=== PATIENT | female | born 1930 | race Caucasian/White ===

== ENCOUNTER 2017-06-22 10:25 | Inpatient (IN) | payer MEDICARE, OTHER ==
[2017-06-22] MEDS ORDERED: Famotidine 20 MG/2 ML SDV IVPUSH ONE (10:36)
--- NOTE | 2017-06-22 10:36 | EDM.PDOC ---
ED HPI GENERAL MEDICAL PROBLEM - General Chief Complaint: General Stated Complaint: Headache, elevated blood pressure Time Seen by Provider: 06/22/17 10:25 Source of Information: Reports: Patient, Old Records ([facility] chart/EMR) History Limitations: Reports: Other (Anxiety and presbycusis) - History of Present Illness INITIAL COMMENTS - FREE TEXT/NARRATIVE: Patient was brought to the emergency room via private automobile by Pastor Michael Capone from [facility] in [place], for evaluation of elevated blood pressures at home 198/80 with patient apparently taking an additional one half tablet of labetalol this morning per instructions from her regular providers at the [facility] in [place]. The patient woke at about 4 AM this morning with a severe 8/10 bilateral frontal pounding headache with some nausea and dizziness, however no visual changes, aura, or other change in her neurological status. She did take 2 regular strength aspirin at that time with only minimal improvement of her symptoms. She also did take her morning medications. The patient denies any chest pain/pressure, heart flutter, orthostasis, orthopnea, diaphoresis, paresthesias, recent decreased exercise tolerance, or any other anginal-type symptoms. No recent history of abdominal pain, heartburn, diarrhea, melena, gross hematochezia, or any food intolerance, including fatty foods, etc. with normal bowel movement this morning. The patient also denies any recent fever, cough, wheezing, dyspnea, etc.. She has not taken any recent OTC cold preparations, etc. Patient is a somewhat poor historian secondary to her significant anxiety. The patient does have a pill organizer at home and denies any medication noncompliance Onset: Today, Sudden Onset Date: 06/22/17 Onset Time: 04:00 Duration: Constant Location: Reports: Head (Headache as above), Back (Stable chronic low back). Denies: Face, Neck, Chest, Abdomen, Upper Extremity, Left, Upper Extremity, Right, Lower Extremity, Left, Lower Extremity, Right, Generalized, Radiates to Quality: Reports: Same as Previous Episode, Stabbing Severity: Moderate Improves with: Reports: None Worsens with: Reports: None Context: Reports: Other (As above) Associated Symptoms: Reports: Headaches, Nausea/Vomiting (No emesis). Denies: Confusion, Chest Pain, Cough, Diaphoresis, Fever/Chills, Loss of Appetite, Malaise, Seizure, Shortness of Breath, Syncope, Weakness Treatments CULINARY WORKER: Reports: Aspirin, Other Medication(s) (Morning medications as above) Headache Pain Score (Numeric/FACES): 8 - Related Data Allergies Allergy/AdvReac Type Severity Reaction Status Date / Time Penicillins Allergy Cannot Verified 06/22/17 10:34 Remember Home Meds: Home Meds Aspirin [Ecotrin] 81 mg PO DAILY 04/06/17 [History] Calcitriol [Calcitriol] 0.25 mcg PO DAILY 04/06/17 [History] Carbidopa/Levodopa [Carbidopa-Levo 25-100 MG ODT] 1 tab PO QID 04/06/17 [History ] Cholecalciferol (Vitamin D3) [Vitamin D3] 1,000 unit PO DAILY 04/06/17 [History] Cyanocobalamin (Vitamin B12) [Vitamin B12] 1,000 mcg PO DAILY 04/06/17 [History] Docusate Sodium [Colace] 1 tab PO DAILY PRN 04/06/17 [History] Labetalol [Normodyne] 100 mg PO DAILY 04/06/17 [History] Levothyroxine 112 mcg PO ACBREAKFAST 04/06/17 [History] Losartan/Hydrochlorothiazide [Losartan-HCTZ 100-12.5 MG] 1 tab PO DAILY [History] Lovastatin [Lovastatin] 40 mg PO BEDTIME 04/06/17 [History] hydrALAZINE [Apresoline] 50 mg PO BID 04/06/17 [History] Past Medical History HEENT History: Reports: Hard of Hearing, Impaired Vision, Other (See Below) Other HEENT History: Patient wears glasses; severe bilateral presbycusis with suboptimal improvement with bilateral hearing aids; chronic tinnitus and vertigo with negative workup Cardiovascular History: Reports: Arrhythmia, CAD, Heart Murmur, High Cholesterol , Hypertension, Pulmonary Hypertension, PVD, Other (See Below). 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 Denies: Intubation, Difficult, PE, Pneumonia, Recurrent, Pneumothorax, Sleep Apnea Other Respiratory History: COPD by chest x-ray Gastrointestinal History: Reports: Cholelithiasis, Chronic Constipation, GERD, Hemorrhoids, Other (See Below). Denies: GI Bleed Other Gastrointestinal History: Mild colitis by colonoscopy on 01/09/08 Genitourinary History: Reports: Chronic Renal Insuffiency, Other (See Below) Other Genitourinary History: Right renal cyst diagnosed on 11/19/04; chronic proteinuria; atrophic left kidney secondary to renal artery stenosis : 0 Para: 0 LMP (Approximate): Menopausal (In her 30s) Musculoskeletal History: Reports: Arthritis, Back Pain, Chronic, Gout, Neck Pain , Chronic, Osteoarthritis, Osteoporosis, Other (See Below). 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; pes planus; right rotator cuff tear diagnosed by MRI on 05/16/13 Neurological History: Reports: Other (See Below) Other Neuro History: Restless leg syndrome Psychiatric History: Reports: Anxiety, Depression, Suicidal Ideation, Other ( See Below) Other Psychiatric History: Situational suicidal ideation and attempt 10/08/1971 secondary to her adopted son's alcohol or drug abuse as below Endocrine/Metabolic History: Reports: Hyperparathyroidism, Hypoparathyroidism, Osteopenia, Osteoporosis, Other (See Below) Other Endocrine/Metabolic History: Secondary hyperparathyroidism secondary to her renal disease Hematologic History: Reports: Anemia, Iron Deficiency, Other (See Below). Denies: B12 Deficiency, Blood Transfusion(s) Other Hematologic History: Outpatient Iron replacement in 2017 Immunologic History: Reports: None Oncologic (Cancer) History: Reports: None Dermatologic History: Reports: Venous Stasis Dermatitis, Other (See Below). Denies: Chronic Cellulitis, Eczema, Psoriasis Other Dermatologic History: Chronic allergic dermatitis - Infectious Disease History Infectious Disease History: Reports: Other (See Below) Other Infectious Disease History: Childhood diseases however patient uncertain - Past Surgical History HEENT Surgical History: Reports: Oral Surgery, Tonsillectomy, Other (See Below) Other HEENT Surgeries/Procedures: Multiple teeth extractions; tonsillectomy at age 15 Cardiovascular Surgical History: Reports: Other (See Below) Other Cardiovascular Surgeries/Procedures: Left renal artery stent/CULINARY WORKER on GI Surgical History: Reports: Cholecystectomy, Colonoscopy, Other (See Below) Other GI Surgeries/Procedures: Colonoscopy on 01/09/08 with previous evaluation on 11/14/02; laparoscopic cholecystectomy on 05/13/2000 Neurological Surgical History: Reports: Laminectomy, Lumbar Spine, Spinal Fusion , Other (See Below) Other Neurological Surgeries/Procedures: Laminectomy and/or spinal fusions in lumbar region in 1966 and 1966 - Past Imaging History Past Imaging History: Reports: Cardiac Echo (Last echocardiogram on 10/19/05 with previous evaluation on 08/26/01), Carotid US (02/28/08 with previous evaluation on 10/01/03), CAT Scan (Negative CT of the head on 12/28/1989), DEXA Scan (01/27/11), Mammogram (Last on 03/18/09), MRA (Abdominal MRA on 12/25/04), MRI (Right shoulder on 05/16/13;), Stress Testing (Negative Cardiolite stress test on 04/01/06 with ejection fraction 74% at that time with previous history of mild cardiac ischemia as above by adenosine Cardiolite stress test on 08/21/02 : Cardiolite stress test in April 2000), Ultrasound (Abdominal aortic ultrasound on 02/28/08; renal artery duplex evaluation on 11/19/04) Social & Family History - Family History Cardiac: Reports: Hypertension, Pacemaker, Other (See Below) Other Cardiac Family History: Mother with pacemaker in her 80s; hypertension in 7 sisters Respiratory: Reports: COPD, Other (See Below) Other Respiratory Family Hisory: Half-brother with COPD with history of tobacco use Musculoskeletal: Reports: Arthritis, Osteoarthritis, Other (See Below) Other Musculoskeletal Family History: Sister with osteoarthritis Neurological: Reports: Alzheimers Disease, CVA, Dementia, Other (See Below) Other Neurological Family History: Sister with fatal CVA in her 70s; brother with fatal Ema Gehrig's disease/ALS at age 70; 2 sisters with organic brain syndrome Psychiatric: Reports: Anxiety, Depression, Psych Hospitalization(s), Other (See Below) Other Psychiatric Family History: Adoptive son with alcohol abuse and drug abuse initially in his 40s Endocrine/Metabolic: Reports: Diabetes, type II, Hypothyroidism, Other (See Below) Other Endocrine/Metabolic Family History: AODM in maternal aunt; sister with hypothyroidism Hematologic: Reports: Anemia, B12 Deficiency, Other (See Below) Other Hematologic Family History: Sister and brother with vitamin B-12 deficiency anemia Oncologic: Reports: Brain, Leukemia, Other (See Below) Other Oncologic Family History: Maternal grandparents with unknown type of cancer multiple nieces and nephews with early cancers fatal in their 30s to 40s , including nephew dying from brain cancer at age 34; nephew with fatal leukemia at age 34 - Tobacco Use Smoking Status *Q: Never Smoker Tobacco Use Within Last Twelve Months: No Used Tobacco, but Quit: No Smoking Cessation Information Provided To Patient: No Second Hand Smoke Exposure: No Second Hand Smoke Education Provided: No - Caffeine Use Caffeine Use: Reports: Coffee (34 cups per day). Denies: Energy Drinks, Soda, Tea - Alcohol Use Alcohol Use History: No Days Per Week of Alcohol Use: 0 (No previous DWIs, problems with alcohol abuse, etc.) Alcohol Use in Last Twelve Months: No - Recreational Drug Use Recreational Drug Use: No Drug Use in Last 12 Months: No - Living Situation & Occupation Living situation: Reports: (1948 2 adopted children and 2 additional foster children who were actually her great nieces), (2017), Assisted Living (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 ED EXAM, GENERAL - Physical Exam Exam: See Below Exam Limited By: No Limitations General Appearance: Alert, WD/WN, No Apparent Distress, Anxious (Moderate) Eye Exam: Bilateral Eye: EOMI, Normal Fundi (No nystagmus), Normal Inspection ( Patient wearing glasses), PERRL Ears: Normal External Exam, Hearing Loss (Moderate persistent bilateral presbycusis despite hearing aid therapy) Nose: Normal Inspection, Normal Mucosa, No Blood Throat/Mouth: Normal Inspection, Normal Lips, Normal Gums, Normal Oropharynx, Normal Voice, No Airway Compromise. No: Normal Teeth (Multiple missing teeth), Dysphagia, Perioral Cyanosis Head: Atraumatic, Normocephalic. No: Facial Swelling, Facial Tenderness, Sinus Tenderness Neck: Supple, Non-Tender, Full Range of Motion, Carotid Bruit (Mild bilateral carotid bruits versus transmitted heart sounds). No: Lymphadenopathy (L), Lymphadenopathy (R), Thyromegaly Respiratory/Chest: No Respiratory Distress, No Accessory Muscle Use, Chest Non- Tender, Rales (Mild bilateral basilar). No: Rhonchi, Wheezing, Pleural Rub Cardiovascular: No Gallop, No JVD, No Rub, Bradycardia (Regular rhythm), Systolic Murmur (1/6 FLETCHER at the aortic and mitral valves). No: No Edema ( Dependent edema as below), Gallop/S3, Gallop/S4 Peripheral Pulses: 2+: Radial (L), Radial (R), Dorsalis Pedis (L), Dorsalis Pedis (R) GI/Abdominal: Normal Bowel Sounds, Soft, Non-Tender, No Organomegaly, No Distention, No Abnormal Bruit, No Mass, Pelvis Stable. No: Guarding (Female) Exam: Deferred Rectal (Female) Exam: Deferred Back Exam: Normal Inspection, Full Range of Motion. No: CVA Tenderness (L), CVA Tenderness (R), Muscle Spasm Extremities: Normal Range of Motion, Non-Tender, Normal Capillary Refill, Pedal Edema (+1 bilateral pedal/pretibial edema), Other (Moderate excoriation over the distal lower extremities bilaterally left greater than right with some inflammation but no infection, mild rheumatoid changes in the hands bilaterally) . No: Candy's Sign Neurological: Alert, Oriented, CN II-XII Intact, Normal Cognition, Normal Gait, Normal Reflexes (Negative Babinski's, finger to nose, and pronator rotation tests. No evidence of facial paresis, tongue deviation, orthostasis, etc.. Excellent reverse thought processes.), No Motor/Sensory Deficits Psychiatric: Anxious (Moderate). No: Depressed Mood Skin Exam: Rash (As above), Wound/Incision (As above). No: Diaphoretic, Lymphangitis Lymphatic: No Adenopathy EKG INTERPRETATION EKG Date: 06/22/17 Time: 10:41 Rhythm: Other (Sinus bradycardia) Rate (Beats/Min): 53 [place]: Normal (Neutral) P-Wave: Enlarged (Mild diffuse biphasic) QRS: Normal (QRS interval of 0.07 seconds representing repolarization changes with T-wave inversion in lead V1 with new T-wave inversion in lead aVL and resolution of previous T-wave inversion in lead 3 since 03/22/07) ST-T: Other (As above) QT: Normal MN/PQ Interval: 0.18 seconds with poor R-wave progression in the anterior leads and resolution of previous pulmonary hypertension Comparison: Change From Previous EKG (As above) EKG Interpretation Comments: 1. No acute ischemic changes 2. Sinus bradycardia 3. Repolarization changes with previous history of borderline incomplete right bundle branch block Course - Vital Signs Last Recorded V/S: Last Vital Signs Temp 36.8 C 06/22/17 11:54 Pulse 48 L 06/22/17 11:54 Resp 24 H 06/22/17 11:54 BP 167/78 H 06/22/17 11:54 Pulse Ox 97 06/22/17 11:54 Vital Signs - 24 hr 06/22/17 06/22/17 06/22/17 10:35 10:49 11:05 Temperature [ Temporal] Pulse, 56 L 51 L 47 L Peripheral [ Pulse Oximetry] Respiratory 18 24 H 22 H Rate Blood Pressure [Left Upper Arm ] Blood Pressure 194/85 H 209/84 H 198/80 H [Right Upper Arm] O2 Sat by Pulse 99 98 97 Oximetry 06/22/17 06/22/17 06/22/17 11:10 11:21 11:41 Temperature [ 36.9 C Temporal] Pulse, 53 L Peripheral [ Pulse Oximetry] Respiratory 22 H Rate Blood Pressure 201/90 H [Left Upper Arm ] Blood Pressure 182/81 H 210/69 H [Right Upper Arm] O2 Sat by Pulse 99 Oximetry 06/22/17 11:54 Temperature [ 36.8 C Temporal] Pulse, 48 L Peripheral [ Pulse Oximetry] Respiratory 24 H Rate Blood Pressure [Left Upper Arm ] Blood Pressure 167/78 H [Right Upper Arm] O2 Sat by Pulse 97 Oximetry - Orders/Labs/Meds Orders: Active Orders 24 hr Category Date Time Status Cardiac Monitoring [RC] . DIRECTED Care 06/22/17 10:36 Active EKG Documentation Completion [RC] ASDIRECTED Care 06/22/17 10:36 Active Peripheral IV Care [RC] . DIRECTED Care 06/22/17 10:36 Active Pulse Oximetry [RC] CONTINUOUS Care 06/22/17 10:36 Active Up With Assistance [RC] PFP Care 06/22/17 10:36 Active Vital Signs [RC] PFP Care 06/22/17 10:36 Active Nothing per Oral Now Diet [DIET] Diet 06/22/17 Breakfast Active Chest 1V Frontal [CR] Stat Exams 06/22/17 10:36 Taken Head wo Cont [CT] Stat Exams 06/22/17 11:08 Taken Sodium Chloride 0.9% [Saline Flush] Med 06/22/17 10:36 Active 10 ml FLUSH ASDIRECTED PRN Obtain Past Medical Record [OM.PC] Urgent Oth 06/22/17 10:36 Active Peripheral IV Insertion Adult [OM.PC] Stat Oth 06/22/17 10:36 Ordered Resuscitation Status Stat Resus Stat 06/22/17 10:36 Ordered Medication Orders Sodium Chloride (Saline Flush) 10 ml FLUSH ASDIRECTED PRN PRN Reason: Keep Vein Open Last Admin: 06/22/17 11:03 Dose: 10 ml Admin: 06/22/17 10:56 Dose: 10 ml Labs: Laboratory Tests 06/22/17 06/22/17 06/22/17 Range/Units 10:30 10:30 10:30 WBC 5.1 (4.0-10.2) K/uL RBC 3.82 (3.77-5.09) M/uL Hgb 11.2 L (11.7-15.5) g/dL Hct 35.6 (34.0-46.0) % MCV 93.2 (84.0-98.0) fL MCH 29.3 (28.2-33.3) pg MCHC 31.5 L (31.7-36.0) g/dL RDW 17.0 H (11.2-14.1) % Plt Count 209 (150-350) K/uL Neut % (Auto) 68.6 (45.0-80.0) % Lymph % (Auto) 16.4 (10.0-50.0) % [place] % (Auto) 10.7 (2.0-14.0) % Eos % (Auto) 3.9 (0.0-5.0) % Baso % (Auto) 0.4 (0.0-2.0) % Neut # (Auto) 3.51 (1.40-7.00) K/uL Lymph # (Auto) 0.84 (0.50-3.50) K/uL [place] # (Auto) 0.55 (0.00-1.00) K/uL Eos # (Auto) 0.20 (0.00-0.50) K/uL Baso # (Auto) 0.02 (0.00-0.20) K/uL PT 11.2 (9.8-11.7) SEC INR 1.0 APTT 26.8 (22.1-29.8) SEC D-Dimer, Quantitative 988 H (0-400) ng/mL Sodium (136-145) mmol/L Potassium (3.5-5.1) mmol/L Chloride (98-107) mmol/L Carbon Dioxide (21.0-32.0) mmol/L BUN (7-18) mg/dL Creatinine (0.51-1.17) mg/dL Est Cr Clr Drug Dosing mL/min Estimated GFR (MDRD) mL/min Glucose (74-106) mg/dL Lactic Acid (0.4-2.0) mmol/L Uric Acid (2.6-7.2) mg/dL Calcium (8.5-10.1) mg/dL Magnesium (1.8-2.4) mg/dL Total Bilirubin (0.2-1.0) mg/dL AST (15-37) U/L ALT (12-78) U/L Alkaline Phosphatase (46-116) IU/L Creatine Kinase (26-308) U/L Creatine Kinase Index (0.0-2.5) % CK-MB (CK-2) (0.00-3.60) ng/mL Troponin I (0.000-0.056) ng/mL NT-Pro-B Natriuret Pep (0-125) pg/mL Total Protein (6.4-8.2) g/dL Albumin (3.4-5.0) g/dL TSH, Ultra Sensitive (0.358-3.740) mIU/mL 06/22/17 06/22/17 Range/Units 10:30 10:30 WBC (4.0-10.2) K/uL RBC (3.77-5.09) M/uL Hgb (11.7-15.5) g/dL Hct (34.0-46.0) % MCV (84.0-98.0) fL MCH (28.2-33.3) pg MCHC (31.7-36.0) g/dL RDW (11.2-14.1) % Plt Count (150-350) K/uL Neut % (Auto) (45.0-80.0) % Lymph % (Auto) (10.0-50.0) % [place] % (Auto) (2.0-14.0) % Eos % (Auto) (0.0-5.0) % Baso % (Auto) (0.0-2.0) % Neut # (Auto) (1.40-7.00) K/uL Lymph # (Auto) (0.50-3.50) K/uL [place] # (Auto) (0.00-1.00) K/uL Eos # (Auto) (0.00-0.50) K/uL Baso # (Auto) (0.00-0.20) K/uL PT (9.8-11.7) SEC INR APTT (22.1-29.8) SEC D-Dimer, Quantitative (0-400) ng/mL Sodium 139 (136-145) mmol/L Potassium 5.0 (3.5-5.1) mmol/L Chloride 103 (98-107) mmol/L Carbon Dioxide 26.5 (21.0-32.0) mmol/L BUN 42 H (7-18) mg/dL Creatinine 1.73 H (0.51-1.17) mg/dL Est Cr Clr Drug Dosing 17.78 mL/min Estimated GFR (MDRD) 28 mL/min Glucose 103 (74-106) mg/dL Lactic Acid 0.7 (0.4-2.0) mmol/L Uric Acid 6.8 (2.6-7.2) mg/dL Calcium 9.4 (8.5-10.1) mg/dL Magnesium 2.1 (1.8-2.4) mg/dL Total Bilirubin 0.4 (0.2-1.0) mg/dL AST 12 L (15-37) U/L ALT 6 L (12-78) U/L Alkaline Phosphatase 69 (46-116) IU/L Creatine Kinase 137 (26-308) U/L Creatine Kinase Index 2.3 (0.0-2.5) % CK-MB (CK-2) 3.20 (0.00-3.60) ng/mL Troponin I 0.009 (0.000-0.056) ng/mL NT-Pro-B Natriuret Pep 602 H (0-125) pg/mL Total Protein 6.5 (6.4-8.2) g/dL Albumin 3.3 L (3.4-5.0) g/dL TSH, Ultra Sensitive 13.265 H (0.358-3.740) mIU/mL Meds: Medications Generic Name Dose Route Start Last Admin Trade Name Freq PRN Reason Stop Dose Admin Sodium Chloride 10 ml 06/22/17 10:36 06/22/17 11:03 Saline Flush FLUSH 10 ml ASDIRECTED PRN Administration Keep Vein Open Discontinued Medications Generic Name Dose Route Start Last Admin Trade Name Freq PRN Reason Stop Dose Admin Diazepam 2.5 mg 06/22/17 11:08 06/22/17 11:15 Valium IVPUSH 06/22/17 11:09 2.5 mg ONETIME ONE Administration Famotidine 40 mg 06/22/17 10:36 06/22/17 10:56 Pepcid IVPUSH 06/22/17 10:37 40 mg ONETIME ONE Administration Fentanyl 50 mcg 06/22/17 10:56 06/22/17 10:59 Sublimaze IVPUSH 06/22/17 10:57 50 mcg ONETIME ONE Administration Fentanyl 50 mcg 06/22/17 11:55 06/22/17 12:01 Sublimaze IVPUSH 06/22/17 11:56 50 mcg ONETIME ONE Administration Hydralazine HCl 10 mg 06/22/17 11:41 06/22/17 11:46 Apresoline IVPUSH 06/22/17 11:42 10 mg ONETIME ONE Administration Ondansetron HCl 4 mg 06/22/17 10:55 06/22/17 10:59 Zofran IVPUSH 06/22/17 10:56 4 mg ONETIME ONE Administration - Radiology Interpretation Free Text/Narrative:: equipment monitor phototypesetting shows moderate sinus bradycardia with lowest heart rate of 47 with average heart rate in the mid to low 50s with no ectopy or arrhythmia Chest x-ray, portable, shows evidence of mild to moderate COPD changes with no significant pulmonary infiltrates or pneumothorax. Probable pulmonary hypertension and mild centralized CHF with mild cardiomegaly and moderate prominence of the proximal aortic arch Telephone consultation at 11:52 AM with the radiology department at [facility] with preliminary verbal report of noncontrast CT scan of the brain showing no acute changes CT Results Date: 06/22/17 CT Results Time: 11:52 Departure - Departure Time of Disposition: 12:25 Disposition: Admitted As Inpatient 65 Condition: Fair Clinical Impression: D-dimer, elevated, Hypothyroidism (acquired), Renal insufficiency, Hypoalbuminemia, Peptic reflux disease, Mixed anxiety depressive disorder, Palliative care status Hypertension Qualifiers: Hypertension type: essential hypertension Qualified Code(s): I10 - Essential ( primary) hypertension Coronary artery disease Qualifiers: Coronary Disease-Associated Artery/Lesion type: [place] artery [place] vs. transplanted heart: [place] heart Associated angina: without angina Qualified Code(s): I25.10 - Atherosclerotic heart disease of [place] coronary artery without angina pectoris CHF (congestive heart failure) Qualifiers: Congestive heart failure type: unspecified congestive heart failure type Congestive heart failure chronicity: acute Qualified Code(s): I50.9 - Heart failure, unspecified Iron deficiency anemia Qualifiers: Iron deficiency anemia type: unspecified iron deficiency Qualified Code(s): D50.9 - Iron deficiency anemia, unspecified Osteoarthritis Qualifiers: Osteoarthritis location: multiple joints Osteoarthritis type: primary Qualified Code(s): M15.0 - Primary generalized (osteo)arthritis - Discharge Information - Problem List & Annotations (1) Hypertension SNOMED Code(s): 93726397 Code(s): I10 - ESSENTIAL (PRIMARY) HYPERTENSION Status: Acute Priority: High Current Visit: Yes Annotation/Comment:: Her blood pressures did improve with medical therapy as above. Continue medication adjustment during this hospitalization. Note some improvement of her headaches prior to admission with negative CT of the head results as above Qualifiers: Hypertension type: essential hypertension Qualified Code(s): I10 - Essential (primary) hypertension (2) Palliative care status SNOMED Code(s): 869914908 Code(s): Z51.5 - ENCOUNTER FOR PALLIATIVE CARE Status: Chronic Priority: Medium Current Visit: Yes Annotation/Comment:: NO CODE STATUS confirmed with the patient today with patient also not wishing to be transferred to [facility] (3) CHF (congestive heart failure) SNOMED Code(s): 94510901 Code(s): I50.9 - HEART FAILURE, UNSPECIFIED Status: Acute Priority: High Current Visit: Yes Onset Date: 06/22/17 Annotation/Comment:: No chest pain or anginal complaints. Initiate IV Lasix therapy on admission with caution secondary to patient's history of renal insufficiency with no GALO inhibitor therapy secondary to her previous history of renal artery stenosis. No repeat echocardiogram secondary to her no code status Qualifiers: Congestive heart failure type: unspecified congestive heart failure type Congestive heart failure chronicity: acute Qualified Code(s): I50.9 - Heart failure, unspecified (4) Coronary artery disease SNOMED Code(s): 98833492 Code(s): I25.10 - ATHSCL HEART DISEASE OF [place] CORONARY ARTERY W/O ANG PCTRS Status: Chronic Priority: Medium Current Visit: Yes Annotation/ Comment:: No chest pain or anginal complaints. Chest pain protocol not initiated in the emergency room. Note moderate bradycardia on arrival with patient taking an additional half dose of her labial all this morning as above. Some improvement of her bradycardia and hypertension with IV hydralazine therapy , which will be continued during this hospitalization Qualifiers: Coronary Disease-Associated Artery/Lesion type: [place] artery [place] vs. transplanted heart: [place] heart Associated angina: without angina Qualified Code(s): I25.10 - Atherosclerotic heart disease of [place] coronary artery without angina pectoris (5) D-dimer, elevated SNOMED Code(s): 585966952 Code(s): R79.89 - OTHER SPECIFIED ABNORMAL FINDINGS OF BLOOD CHEMISTRY Status: Chronic Priority: Medium Current Visit: Yes Annotation/Comment:: Venous Doppler studies of the lower extremities. Subcutaneous Lovenox therapy for now with caution secondary to a previous history of anemia. No CTA of the chest for now secondary to her renal insufficiency with no clinical evidence of DVT or PE (6) Hypoalbuminemia SNOMED Code(s): 732988276 Code(s): E88.09 - OTH DISORDERS OF PLASMA-PROTEIN METABOLISM, NEC Status: Acute Priority: Medium Current Visit: Yes Onset Date: 06/22/17 Annotation/Comment:: Initiate high-protein Glucerna supplements as snacks (7) Hypothyroidism (acquired) SNOMED Code(s): 383959548 Code(s): E03.9 - HYPOTHYROIDISM, UNSPECIFIED Status: Chronic Priority: High Current Visit: Yes Annotation/Comment:: TSH significantly elevated despite history of medication compliance. Increase L thyroxine therapy on admission with repeat TSH in about 4 weeks (8) Iron deficiency anemia SNOMED Code(s): 39523246 Code(s): D50.9 - IRON DEFICIENCY ANEMIA, UNSPECIFIED Status: Chronic Priority: Medium Current Visit: Yes Annotation/Comment:: Previous history of iron deficiency anemia with iron replacement on an outpatient basis during a 5 day period in March and April of last year. Iron studies to be conducted in the a.m. Qualifiers: Iron deficiency anemia type: unspecified iron deficiency Qualified Code(s) : D50.9 - Iron deficiency anemia, unspecified (9) Mixed anxiety depressive disorder SNOMED Code(s): 298861761 Code(s): F41.8 - OTHER SPECIFIED ANXIETY DISORDERS Status: Chronic Priority: Medium Current Visit: Yes Annotation/Comment:: Moderate control in the emergency room. Continue to observe closely. IV diazepam given in the emergency room (10) Osteoarthritis SNOMED Code(s): 516202823 Code(s): M19.90 - UNSPECIFIED OSTEOARTHRITIS, UNSPECIFIED SITE Status: Chronic Priority: Medium Current Visit: Yes Annotation/Comment:: Stable by history including chronic low back pain Qualifiers: Osteoarthritis location: multiple joints Osteoarthritis type: primary Qualified Code(s): M15.0 - Primary generalized (osteo)arthritis (11) Peptic reflux disease SNOMED Code(s): 04755921 Code(s): K21.9 - GASTRO-ESOPHAGEAL REFLUX DISEASE WITHOUT ESOPHAGITIS Status: Chronic Priority: Medium Current Visit: Yes Annotation/Comment:: No abdominal complaints other than nonspecific nausea. High-dose IV Pepcid given in the emergency room (12) Renal insufficiency SNOMED Code(s): 909653286 Code(s): N28.9 - DISORDER OF KIDNEY AND URETER, UNSPECIFIED Status: Chronic Priority: Medium Current Visit: Yes Annotation/Comment:: History of renal artery stenosis and proteinuria. Continue to observe closely - Problem List Review Problem List Initiated/Reviewed/Updated: Yes - My Orders Last 24 Hours: My Active Orders 06/22/17 10:36 Cardiac Monitoring [RC] . DIRECTED EKG Documentation Completion [RC] ASDIRECTED Peripheral IV Care [RC] . DIRECTED Pulse Oximetry [RC] CONTINUOUS Up With Assistance [RC] PFP Vital Signs [RC] PFP Chest 1V Frontal [CR] Stat Sodium Chloride 0.9% [Saline Flush] 10 ml FLUSH ASDIRECTED PRN Obtain Past Medical Record [OM.PC] Urgent Peripheral IV Insertion Adult [OM.PC] Stat Resuscitation Status Stat 06/22/17 11:08 Head wo Cont [CT] Stat 06/22/17 Breakfast Nothing per Oral Now Diet [DIET] - Assessment/Plan Admission H&P: Please use this note as an admission H&P Last 24 Hours: My Active Orders 06/22/17 10:36 Cardiac Monitoring [RC] . DIRECTED EKG Documentation Completion [RC] ASDIRECTED Peripheral IV Care [RC] . DIRECTED Pulse Oximetry [RC] CONTINUOUS Up With Assistance [RC] PFP Vital Signs [RC] PFP Chest 1V Frontal [CR] Stat Sodium Chloride 0.9% [Saline Flush] 10 ml FLUSH ASDIRECTED PRN Obtain Past Medical Record [OM.PC] Urgent Peripheral IV Insertion Adult [OM.PC] Stat Resuscitation Status Stat 06/22/17 11:08 Head wo Cont [CT] Stat 06/22/17 Breakfast Nothing per Oral Now Diet [DIET] Assessment:: As above Plan: As above. Extensive precautions were given to the patient, who is in agreement with the treatment plan. The patient will require about 3-4 days of inpatient/ acute care secondary to multiple health problems as above.
[2017-06-22] MEDS ORDERED: Ondansetron 4 MG/2 ML SDV IVPUSH ONE (10:55)
[2017-06-22] MEDS: Sodium Chloride 0.9% 10 ML Syringe FLUSH PRN ×3 (10:56→13:03)
[2017-06-22] MEDS ORDERED: fentaNYL 100 MCG/2 ML SDV IVPUSH ONE ×2 (10:56→11:55)
[2017-06-22] MEDS ORDERED: hydrALAZINE 20 MG/ML SDV IVPUSH ONE (11:41)
[2017-06-22] MEDS ORDERED: Docusate Sodium 100 MG Cap PO PRN (12:31)
[2017-06-22] MEDS ORDERED: Temazepam 15 MG Cap PO PRN (12:32)
[2017-06-22] MEDS ORDERED: Sodium Chloride 0.9% 10 ML Syringe FLUSH PRN (12:32)
[2017-06-22] MEDS ORDERED: Enoxaparin 60 MG/0.6 ML Syringe SUBCUT SCH (13:00)
[2017-06-22] MEDS: hydrALAZINE 50 MG Tab PO SCH ×2 (13:02→20:17)
[2017-06-22] MEDS: Acetaminophen 325 MG Tab PO PRN ×2 (13:03→17:16)
[2017-06-22] MEDS: Furosemide 40 MG/4 ML VIAL IVPUSH SCH ×2 (13:03→20:16)
[2017-06-22] MEDS ORDERED: Carbidopa/Levodopa 25-100 MG Tab PO ONE (13:33)
[2017-06-22] MEDS ORDERED: fentaNYL 100 MCG/2 ML SDV IVPUSH PRN (14:00)
[2017-06-22] MEDS: LORazepam 0.5 MG Tab PO PRN ×2 (16:06→22:00)
[2017-06-22] MEDS: Carbidopa/Levodopa 25-100 MG Tab PO SCH ×2 (16:07→20:17)
[2017-06-22] MEDS: Potassium Chloride 20 MEQ Tab.ER PO SCH (17:16)
[2017-06-22] MEDS: Triamcinolone Acetonide 0.025% Crm 15 GM Tube TOP SCH (20:21)
[2017-06-22] MEDS: Ondansetron 4 MG/2 ML SDV IVPUSH PRN (21:13)
[2017-06-23] MEDS: Furosemide 40 MG/4 ML VIAL IVPUSH SCH ×2 (05:01→17:05)
[2017-06-23] MEDS: Sodium Chloride 0.9% 10 ML Syringe FLUSH PRN ×2 (05:01→17:06)
[2017-06-23] MEDS: hydrALAZINE 50 MG Tab PO SCH ×3 (05:01→20:09)
[2017-06-23] MEDS: Potassium Chloride 20 MEQ Tab.ER PO SCH ×2 (07:44→17:05)
[2017-06-23] MEDS: Levothyroxine 150 MCG Tab PO SCH (07:44)
[2017-06-23] MEDS: Acetaminophen 325 MG Tab PO PRN (07:45)
[2017-06-23] MEDS: Calcitriol 0.25 MCG Cap PO SCH (07:45)
[2017-06-23] MEDS: Cyanocobalamin (Vitamin B12) 1,000 MCG Tab PO SCH (07:46)
[2017-06-23] MEDS: Hydrochlorothiazide 25 MG Tab PO SCH (07:46)
[2017-06-23] MEDS: Cholecalciferol (Vitamin D3) 1,000 Unit Tab PO SCH (07:46)
[2017-06-23] MEDS: Aspirin 81 MG Tab.EC PO SCH (07:46)
[2017-06-23] MEDS: Carbidopa/Levodopa 25-100 MG Tab PO SCH ×4 (07:47→20:09)
[2017-06-23] MEDS: Citalopram 20 MG Tab PO SCH (07:47)
[2017-06-23] MEDS: Labetalol 100 MG Tab PO SCH ×2 (07:48→17:10)
[2017-06-23] MEDS: Losartan 50 MG Tab PO SCH (07:49)
--- NOTE | 2017-06-23 09:03 | PCM.PN ---
- General Info Date of Service: 06/23/17 Admission Dx/Problem (Free Text): 1. Hypertensive crisis 2. CHF 3. Bradycardia Functional Status: Reports: Pain Controlled, Tolerating Diet (Tolerated bland diet yesterday with patient nothing by mouth this morning for blood work. She does wish to have breakfast), Ambulating, Urinating. Denies: New Symptoms Pain Score: 0 - Review of Systems General: Reports: No Symptoms, Appetite (Good). Denies: Fever, Weakness, Fatigue, Malaise, Chills, Night Sweats HEENT: Reports: Glasses. Denies: Dysphasia, Ear Pain, Eye Pain, Headaches ( Resolved since yesterday), Post Nasal Drip, Sinus Congestion, Sore Throat, Rhinitis, Visual Changes Pulmonary: Reports: No Symptoms. Denies: Shortness of Breath, Pleuritic Chest Pain, Cough, Sputum, Hemoptysis, Wheezing Cardiovascular: Reports: No Symptoms. Denies: Chest Pain, Palpitations, Dyspnea on Exertion, Orthopnea, PND, Edema (Resolved since yesterday), Lightheadedness, Other Gastrointestinal: Reports: No Symptoms, Other (Normal bowel movement yesterday evening by patient history). Denies: Abdominal Pain, Constipation, Decreased Appetite, Diarrhea, Difficulty Swallowing, Flatus, Hematochezia, Melena, Nausea , Vomiting Genitourinary: Reports: No Symptoms. Denies: Dysuria, Frequency, Burning, Pain , Urgency, Incontinence, Hematuria, Retention, Flank Pain Musculoskeletal: Reports: No Symptoms. Denies: Neck Pain, Shoulder Pain, Arm Pain, Back Pain, Leg Pain Skin: Reports: Bruising (Mild at Lovenox injection site), Pruritis (Moderate inflammation and excoriation over the distal left fibular region with no local signs of infection), Rash (Stable as above). Denies: Diaphoresis Neurological: Reports: No Symptoms. Denies: Confusion, Dizziness, Headache, Numbness, Paresthesia, Seizure, Syncope, Tingling, Difficulty Walking, Weakness Psychiatric: Reports: No Symptoms. Denies: Confusion, Depression, Anxiety, Agitation, Hallucinations, Suicidal Ideation, Homicidal Ideation - Patient Data Vitals - Most Recent: Last Vital Signs Temp 36.8 C 06/23/17 07:51 Pulse 60 06/23/17 07:51 Resp 16 06/23/17 07:51 BP 152/81 H 06/23/17 07:51 Pulse Ox 96 06/23/17 07:51 Vital Signs - 24 hr 06/22/17 06/22/17 06/22/17 10:35 10:49 11:05 Temperature [ Oral] Temperature [ Temporal] Pulse, Peripheral Pulse, 56 L 51 L 47 L Peripheral [ Pulse Oximetry] Respiratory 18 24 H 22 H Rate Blood Pressure Blood Pressure [Left Upper Arm ] Blood Pressure 194/85 H 209/84 H 198/80 H [Right Upper Arm] O2 Sat by Pulse 99 98 97 Oximetry O2 Sat by Pulse Oximetry [Room Air] 06/22/17 06/22/17 06/22/17 11:10 11:21 11:41 Temperature [ Oral] Temperature [ 36.9 C Temporal] Pulse, Peripheral Pulse, 53 L Peripheral [ Pulse Oximetry] Respiratory 22 H Rate Blood Pressure Blood Pressure 201/90 H [Left Upper Arm ] Blood Pressure 182/81 H 210/69 H [Right Upper Arm] O2 Sat by Pulse 99 Oximetry O2 Sat by Pulse Oximetry [Room Air] 06/22/17 06/22/17 06/22/17 11:54 12:33 16:39 Temperature [ Oral] Temperature [ 36.8 C 36.4 C 36.5 C Temporal] Pulse, Peripheral Pulse, 48 L 53 L 54 L Peripheral [ Pulse Oximetry] Respiratory 24 H 19 18 Rate Blood Pressure Blood Pressure 156/73 H 148/62 H [Left Upper Arm ] Blood Pressure 167/78 H [Right Upper Arm] O2 Sat by Pulse 97 97 96 Oximetry O2 Sat by Pulse 96 Oximetry [Room Air] 06/22/17 06/22/17 06/23/17 20:00 20:17 04:00 Temperature [ 36.4 C 36.2 C Oral] Temperature [ Temporal] Pulse, Peripheral Pulse, 57 L 55 L Peripheral [ Pulse Oximetry] Respiratory 20 20 Rate Blood Pressure 126/67 Blood Pressure 130/59 L [Left Upper Arm ] Blood Pressure [Right Upper Arm] O2 Sat by Pulse 95 98 Oximetry O2 Sat by Pulse Oximetry [Room Air] 06/23/17 06/23/17 06/23/17 05:01 07:48 07:49 Temperature [ Oral] Temperature [ Temporal] Pulse, 60 Peripheral Pulse, Peripheral [ Pulse Oximetry] Respiratory Rate Blood Pressure 130/59 L 152/81 H 152/81 H Blood Pressure [Left Upper Arm ] Blood Pressure [Right Upper Arm] O2 Sat by Pulse Oximetry O2 Sat by Pulse Oximetry [Room Air] 06/23/17 07:51 Temperature [ 36.8 C Oral] Temperature [ Temporal] Pulse, Peripheral Pulse, 60 Peripheral [ Pulse Oximetry] Respiratory 16 Rate Blood Pressure Blood Pressure 152/81 H [Left Upper Arm ] Blood Pressure [Right Upper Arm] O2 Sat by Pulse 96 Oximetry O2 Sat by Pulse Oximetry [Room Air] Weight - Most Recent: 60.419 kg I&O - Last 24 Hours: Intake & Output 06/22/17 06/23/17 06/23/17 22:59 06:59 14:59 Intake Total 300 120 Output Total 450 1600 Balance -150 -1480 Imaging Impressions - Last 24 Hours: 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 Moderate COPD changes with no pulmonary infiltrates, pneumothorax, etc.. Large amounts of stool present with no significant fluid levels, free air, ileus, or obstruction. Surgical clips noted in right upper quadrant consistent with previous laparoscopic cholecystectomy. 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 Lab Results Last 24 Hours: Laboratory Results - last 24 hr 06/22/17 06/22/17 06/23/17 Range/Units 15:52 21:37 06:50 WBC 4.2 (4.0-10.2) K/uL RBC 3.65 L (3.77-5.09) M/uL Hgb 10.6 L (11.7-15.5) g/dL Hct 33.8 L (34.0-46.0) % MCV 92.6 (84.0-98.0) fL MCH 29.0 (28.2-33.3) pg MCHC 31.4 L (31.7-36.0) g/dL RDW 17.0 H (11.2-14.1) % Plt Count 214 (150-350) K/uL Neut % (Auto) 67.2 (45.0-80.0) % Lymph % (Auto) 17.6 (10.0-50.0) % [place] % (Auto) 12.0 (2.0-14.0) % Eos % (Auto) 2.7 (0.0-5.0) % Baso % (Auto) 0.5 (0.0-2.0) % Neut # (Auto) 2.79 (1.40-7.00) K/uL Lymph # (Auto) 0.73 (0.50-3.50) K/uL [place] # (Auto) 0.50 (0.00-1.00) K/uL Eos # (Auto) 0.11 (0.00-0.50) K/uL Baso # (Auto) 0.02 (0.00-0.20) K/uL D-Dimer, Quantitative (0-400) ng/mL Sodium (136-145) mmol/L Potassium (3.5-5.1) mmol/L Chloride (98-107) mmol/L Carbon Dioxide (21.0-32.0) mmol/L BUN (7-18) mg/dL Creatinine (0.51-1.17) mg/dL Est Cr Clr Drug Dosing mL/min Estimated GFR (MDRD) mL/min Glucose (74-106) mg/dL Hemoglobin A1c (4.3-5.7) % Calcium (8.5-10.1) mg/dL Iron (50-175) ug/dL TIBC (250-450) ug/dL % Saturation Ferritin (8-388) ng/mL Total Bilirubin (0.2-1.0) mg/dL AST (15-37) U/L ALT (12-78) U/L Alkaline Phosphatase (46-116) IU/L Creatine Kinase 131 148 (26-308) U/L Creatine Kinase Index 2.5 2.3 (0.0-2.5) % CK-MB (CK-2) 3.30 3.40 (0.00-3.60) ng/mL Troponin I 0.010 0.005 (0.000-0.056) ng/mL NT-Pro-B Natriuret Pep (0-125) pg/mL Total Protein (6.4-8.2) g/dL Albumin (3.4-5.0) g/dL Triglycerides (30-150) mg/dL Cholesterol (100-200) mg/dL LDL Cholesterol, Calc (0-100) mg/dL HDL Cholesterol (40-60) mg/dL 06/23/17 06/23/17 06/23/17 Range/Units 06:50 06:50 06:50 WBC (4.0-10.2) K/uL RBC (3.77-5.09) M/uL Hgb (11.7-15.5) g/dL Hct (34.0-46.0) % MCV (84.0-98.0) fL MCH (28.2-33.3) pg MCHC (31.7-36.0) g/dL RDW (11.2-14.1) % Plt Count (150-350) K/uL Neut % (Auto) (45.0-80.0) % Lymph % (Auto) (10.0-50.0) % [place] % (Auto) (2.0-14.0) % Eos % (Auto) (0.0-5.0) % Baso % (Auto) (0.0-2.0) % Neut # (Auto) (1.40-7.00) K/uL Lymph # (Auto) (0.50-3.50) K/uL [place] # (Auto) (0.00-1.00) K/uL Eos # (Auto) (0.00-0.50) K/uL Baso # (Auto) (0.00-0.20) K/uL D-Dimer, Quantitative 514 H (0-400) ng/mL Sodium 134 L (136-145) mmol/L Potassium 4.6 (3.5-5.1) mmol/L Chloride 100 (98-107) mmol/L Carbon Dioxide 24.6 (21.0-32.0) mmol/L BUN 42 H (7-18) mg/dL Creatinine 1.86 H (0.51-1.17) mg/dL Est Cr Clr Drug Dosing 16.54 mL/min Estimated GFR (MDRD) 26 mL/min Glucose 96 (74-106) mg/dL Hemoglobin A1c 5.7 (4.3-5.7) % Calcium 9.4 (8.5-10.1) mg/dL Iron (50-175) ug/dL TIBC (250-450) ug/dL % Saturation Ferritin (8-388) ng/mL Total Bilirubin 0.4 (0.2-1.0) mg/dL AST 15 (15-37) U/L ALT 6 L (12-78) U/L Alkaline Phosphatase 66 (46-116) IU/L Creatine Kinase 134 (26-308) U/L Creatine Kinase Index 2.2 (0.0-2.5) % CK-MB (CK-2) 3.00 (0.00-3.60) ng/mL Troponin I 0.011 (0.000-0.056) ng/mL NT-Pro-B Natriuret Pep 727 H (0-125) pg/mL Total Protein 6.0 L (6.4-8.2) g/dL Albumin 3.1 L (3.4-5.0) g/dL Triglycerides 104 (30-150) mg/dL Cholesterol 154 (100-200) mg/dL LDL Cholesterol, Calc 78 (0-100) mg/dL HDL Cholesterol 55 (40-60) mg/dL 06/23/17 Range/Units 06:50 WBC (4.0-10.2) K/uL RBC (3.77-5.09) M/uL Hgb (11.7-15.5) g/dL Hct (34.0-46.0) % MCV (84.0-98.0) fL MCH (28.2-33.3) pg MCHC (31.7-36.0) g/dL RDW (11.2-14.1) % Plt Count (150-350) K/uL Neut % (Auto) (45.0-80.0) % Lymph % (Auto) (10.0-50.0) % [place] % (Auto) (2.0-14.0) % Eos % (Auto) (0.0-5.0) % Baso % (Auto) (0.0-2.0) % Neut # (Auto) (1.40-7.00) K/uL Lymph # (Auto) (0.50-3.50) K/uL [place] # (Auto) (0.00-1.00) K/uL Eos # (Auto) (0.00-0.50) K/uL Baso # (Auto) (0.00-0.20) K/uL D-Dimer, Quantitative (0-400) ng/mL Sodium (136-145) mmol/L Potassium (3.5-5.1) mmol/L Chloride (98-107) mmol/L Carbon Dioxide (21.0-32.0) mmol/L BUN (7-18) mg/dL Creatinine (0.51-1.17) mg/dL Est Cr Clr Drug Dosing mL/min Estimated GFR (MDRD) mL/min Glucose (74-106) mg/dL Hemoglobin A1c (4.3-5.7) % Calcium (8.5-10.1) mg/dL Iron 68 (50-175) ug/dL TIBC 202 L (250-450) ug/dL % Saturation [id number] Ferritin 129 (8-388) ng/mL Total Bilirubin (0.2-1.0) mg/dL AST (15-37) U/L ALT (12-78) U/L Alkaline Phosphatase (46-116) IU/L Creatine Kinase (26-308) U/L Creatine Kinase Index (0.0-2.5) % CK-MB (CK-2) (0.00-3.60) ng/mL Troponin I (0.000-0.056) ng/mL NT-Pro-B Natriuret Pep (0-125) pg/mL Total Protein (6.4-8.2) g/dL Albumin (3.4-5.0) g/dL Triglycerides (30-150) mg/dL Cholesterol (100-200) mg/dL LDL Cholesterol, Calc (0-100) mg/dL HDL Cholesterol (40-60) mg/dL Laboratory Tests 06/22/17 06/22/17 06/22/17 Range/Units 10:30 10:30 10:30 WBC 5.1 (4.0-10.2) K/uL RBC 3.82 (3.77-5.09) M/uL Hgb 11.2 L (11.7-15.5) g/dL Hct 35.6 (34.0-46.0) % MCV 93.2 (84.0-98.0) fL MCH 29.3 (28.2-33.3) pg MCHC 31.5 L (31.7-36.0) g/dL RDW 17.0 H (11.2-14.1) % Plt Count 209 (150-350) K/uL Neut % (Auto) 68.6 (45.0-80.0) % Lymph % (Auto) 16.4 (10.0-50.0) % [place] % (Auto) 10.7 (2.0-14.0) % Eos % (Auto) 3.9 (0.0-5.0) % Baso % (Auto) 0.4 (0.0-2.0) % Neut # (Auto) 3.51 (1.40-7.00) K/uL Lymph # (Auto) 0.84 (0.50-3.50) K/uL [place] # (Auto) 0.55 (0.00-1.00) K/uL Eos # (Auto) 0.20 (0.00-0.50) K/uL Baso # (Auto) 0.02 (0.00-0.20) K/uL PT 11.2 (9.8-11.7) SEC INR 1.0 APTT 26.8 (22.1-29.8) SEC D-Dimer, Quantitative 988 H (0-400) ng/mL Sodium (136-145) mmol/L Potassium (3.5-5.1) mmol/L Chloride (98-107) mmol/L Carbon Dioxide (21.0-32.0) mmol/L BUN (7-18) mg/dL Creatinine (0.51-1.17) mg/dL Est Cr Clr Drug Dosing mL/min Estimated GFR (MDRD) mL/min Glucose (74-106) mg/dL Hemoglobin A1c (4.3-5.7) % Lactic Acid (0.4-2.0) mmol/L Uric Acid (2.6-7.2) mg/dL Calcium (8.5-10.1) mg/dL Magnesium (1.8-2.4) mg/dL Iron (50-175) ug/dL TIBC (250-450) ug/dL % Saturation Ferritin (8-388) ng/mL Total Bilirubin (0.2-1.0) mg/dL AST (15-37) U/L ALT (12-78) U/L Alkaline Phosphatase (46-116) IU/L Creatine Kinase (26-308) U/L Creatine Kinase Index (0.0-2.5) % CK-MB (CK-2) (0.00-3.60) ng/mL Troponin I (0.000-0.056) ng/mL NT-Pro-B Natriuret Pep (0-125) pg/mL Total Protein (6.4-8.2) g/dL Albumin (3.4-5.0) g/dL Triglycerides (30-150) mg/dL Cholesterol (100-200) mg/dL LDL Cholesterol, Calc (0-100) mg/dL HDL Cholesterol (40-60) mg/dL TSH, Ultra Sensitive (0.358-3.740) mIU/mL 06/22/17 06/22/17 06/22/17 Range/Units 10:30 10:30 15:52 WBC (4.0-10.2) K/uL RBC (3.77-5.09) M/uL Hgb (11.7-15.5) g/dL Hct (34.0-46.0) % MCV (84.0-98.0) fL MCH (28.2-33.3) pg MCHC (31.7-36.0) g/dL RDW (11.2-14.1) % Plt Count (150-350) K/uL Neut % (Auto) (45.0-80.0) % Lymph % (Auto) (10.0-50.0) % [place] % (Auto) (2.0-14.0) % Eos % (Auto) (0.0-5.0) % Baso % (Auto) (0.0-2.0) % Neut # (Auto) (1.40-7.00) K/uL Lymph # (Auto) (0.50-3.50) K/uL [place] # (Auto) (0.00-1.00) K/uL Eos # (Auto) (0.00-0.50) K/uL Baso # (Auto) (0.00-0.20) K/uL PT (9.8-11.7) SEC INR APTT (22.1-29.8) SEC D-Dimer, Quantitative (0-400) ng/mL Sodium 139 (136-145) mmol/L Potassium 5.0 (3.5-5.1) mmol/L Chloride 103 (98-107) mmol/L Carbon Dioxide 26.5 (21.0-32.0) mmol/L BUN 42 H (7-18) mg/dL Creatinine 1.73 H (0.51-1.17) mg/dL Est Cr Clr Drug Dosing 17.78 mL/min Estimated GFR (MDRD) 28 mL/min Glucose 103 (74-106) mg/dL Hemoglobin A1c (4.3-5.7) % Lactic Acid 0.7 (0.4-2.0) mmol/L Uric Acid 6.8 (2.6-7.2) mg/dL Calcium 9.4 (8.5-10.1) mg/dL Magnesium 2.1 (1.8-2.4) mg/dL Iron (50-175) ug/dL TIBC (250-450) ug/dL % Saturation Ferritin (8-388) ng/mL Total Bilirubin 0.4 (0.2-1.0) mg/dL AST 12 L (15-37) U/L ALT 6 L (12-78) U/L Alkaline Phosphatase 69 (46-116) IU/L Creatine Kinase 137 131 (26-308) U/L Creatine Kinase Index 2.3 2.5 (0.0-2.5) % CK-MB (CK-2) 3.20 3.30 (0.00-3.60) ng/mL Troponin I 0.009 0.010 (0.000-0.056) ng/mL NT-Pro-B Natriuret Pep 602 H (0-125) pg/mL Total Protein 6.5 (6.4-8.2) g/dL Albumin 3.3 L (3.4-5.0) g/dL Triglycerides (30-150) mg/dL Cholesterol (100-200) mg/dL LDL Cholesterol, Calc (0-100) mg/dL HDL Cholesterol (40-60) mg/dL TSH, Ultra Sensitive 13.265 H (0.358-3.740) mIU/mL 06/22/17 06/23/17 06/23/17 Range/Units 21:37 06:50 06:50 WBC 4.2 (4.0-10.2) K/uL RBC 3.65 L (3.77-5.09) M/uL Hgb 10.6 L (11.7-15.5) g/dL Hct 33.8 L (34.0-46.0) % MCV 92.6 (84.0-98.0) fL MCH 29.0 (28.2-33.3) pg MCHC 31.4 L (31.7-36.0) g/dL RDW 17.0 H (11.2-14.1) % Plt Count 214 (150-350) K/uL Neut % (Auto) 67.2 (45.0-80.0) % Lymph % (Auto) 17.6 (10.0-50.0) % [place] % (Auto) 12.0 (2.0-14.0) % Eos % (Auto) 2.7 (0.0-5.0) % Baso % (Auto) 0.5 (0.0-2.0) % Neut # (Auto) 2.79 (1.40-7.00) K/uL Lymph # (Auto) 0.73 (0.50-3.50) K/uL [place] # (Auto) 0.50 (0.00-1.00) K/uL Eos # (Auto) 0.11 (0.00-0.50) K/uL Baso # (Auto) 0.02 (0.00-0.20) K/uL PT (9.8-11.7) SEC INR APTT (22.1-29.8) SEC D-Dimer, Quantitative 514 H (0-400) ng/mL Sodium (136-145) mmol/L Potassium (3.5-5.1) mmol/L Chloride (98-107) mmol/L Carbon Dioxide (21.0-32.0) mmol/L BUN (7-18) mg/dL Creatinine (0.51-1.17) mg/dL Est Cr Clr Drug Dosing mL/min Estimated GFR (MDRD) mL/min Glucose (74-106) mg/dL Hemoglobin A1c (4.3-5.7) % Lactic Acid (0.4-2.0) mmol/L Uric Acid (2.6-7.2) mg/dL Calcium (8.5-10.1) mg/dL Magnesium (1.8-2.4) mg/dL Iron (50-175) ug/dL TIBC (250-450) ug/dL % Saturation Ferritin (8-388) ng/mL Total Bilirubin (0.2-1.0) mg/dL AST (15-37) U/L ALT (12-78) U/L Alkaline Phosphatase (46-116) IU/L Creatine Kinase 148 (26-308) U/L Creatine Kinase Index 2.3 (0.0-2.5) % CK-MB (CK-2) 3.40 (0.00-3.60) ng/mL Troponin I 0.005 (0.000-0.056) ng/mL NT-Pro-B Natriuret Pep (0-125) pg/mL Total Protein (6.4-8.2) g/dL Albumin (3.4-5.0) g/dL Triglycerides (30-150) mg/dL Cholesterol (100-200) mg/dL LDL Cholesterol, Calc (0-100) mg/dL HDL Cholesterol (40-60) mg/dL TSH, Ultra Sensitive (0.358-3.740) mIU/mL 06/23/17 06/23/17 06/23/17 Range/Units 06:50 06:50 06:50 WBC (4.0-10.2) K/uL RBC (3.77-5.09) M/uL Hgb (11.7-15.5) g/dL Hct (34.0-46.0) % MCV (84.0-98.0) fL MCH (28.2-33.3) pg MCHC (31.7-36.0) g/dL RDW (11.2-14.1) % Plt Count (150-350) K/uL Neut % (Auto) (45.0-80.0) % Lymph % (Auto) (10.0-50.0) % [place] % (Auto) (2.0-14.0) % Eos % (Auto) (0.0-5.0) % Baso % (Auto) (0.0-2.0) % Neut # (Auto) (1.40-7.00) K/uL Lymph # (Auto) (0.50-3.50) K/uL [place] # (Auto) (0.00-1.00) K/uL Eos # (Auto) (0.00-0.50) K/uL Baso # (Auto) (0.00-0.20) K/uL PT (9.8-11.7) SEC INR APTT (22.1-29.8) SEC D-Dimer, Quantitative (0-400) ng/mL Sodium 134 L (136-145) mmol/L Potassium 4.6 (3.5-5.1) mmol/L Chloride 100 (98-107) mmol/L Carbon Dioxide 24.6 (21.0-32.0) mmol/L BUN 42 H (7-18) mg/dL Creatinine 1.86 H (0.51-1.17) mg/dL Est Cr Clr Drug Dosing 16.54 mL/min Estimated GFR (MDRD) 26 mL/min Glucose 96 (74-106) mg/dL Hemoglobin A1c 5.7 (4.3-5.7) % Lactic Acid (0.4-2.0) mmol/L Uric Acid (2.6-7.2) mg/dL Calcium 9.4 (8.5-10.1) mg/dL Magnesium (1.8-2.4) mg/dL Iron 68 (50-175) ug/dL TIBC 202 L (250-450) ug/dL % Saturation [id number] Ferritin 129 (8-388) ng/mL Total Bilirubin 0.4 (0.2-1.0) mg/dL AST 15 (15-37) U/L ALT 6 L (12-78) U/L Alkaline Phosphatase 66 (46-116) IU/L Creatine Kinase 134 (26-308) U/L Creatine Kinase Index 2.2 (0.0-2.5) % CK-MB (CK-2) 3.00 (0.00-3.60) ng/mL Troponin I 0.011 (0.000-0.056) ng/mL NT-Pro-B Natriuret Pep 727 H (0-125) pg/mL Total Protein 6.0 L (6.4-8.2) g/dL Albumin 3.1 L (3.4-5.0) g/dL Triglycerides 104 (30-150) mg/dL Cholesterol 154 (100-200) mg/dL LDL Cholesterol, Calc 78 (0-100) mg/dL HDL Cholesterol 55 (40-60) mg/dL TSH, Ultra Sensitive (0.358-3.740) mIU/mL Kris Results Last 24 Hours: None Med Orders - Current: Current Medications Acetaminophen (Tylenol) 650 mg PO Q4H PRN PRN Reason: Pain Last Admin: 06/23/17 07:45 Dose: 650 mg Aspirin (Halfprin) 81 mg PO DAILY [facility] Last Admin: 06/23/17 07:46 Dose: 81 mg Calcitriol (Rocaltrol) 0.25 mcg PO DAILY [facility] Last Admin: 06/23/17 07:45 Dose: 0.25 mcg Carbidopa/Levodopa (Sinemet 25-100 Mg) 1 tab PO QID [facility] Last Admin: 06/23/17 07:47 Dose: 1 tab Cholecalciferol (Vitamin D3) 1,000 units PO DAILY [facility] Last Admin: 06/23/17 07:46 Dose: 1,000 units Citalopram Hydrobromide (Celexa) 10 mg PO DAILY [facility] Last Admin: 06/23/17 07:47 Dose: 10 mg Cyanocobalamin (Vitamin B12) 1,000 mcg PO DAILY [facility] Last Admin: 06/23/17 07:46 Dose: 1,000 mcg Docusate Sodium (Colace) 100 mg PO DAILY PRN PRN Reason: Constipation Enoxaparin Sodium (Lovenox) 30 mg SUBCUT Q24H [facility] Fentanyl (Sublimaze) 50 mcg IVPUSH Q6H PRN PRN Reason: Headache/Pain Last Admin: 06/22/17 21:12 Dose: 50 mcg Furosemide (Lasix) 40 mg IVPUSH Q8H [facility] Last Admin: 06/23/17 05:01 Dose: 40 mg Hydralazine HCl (Apresoline) 50 mg PO Q8H [facility] Last Admin: 06/23/17 05:01 Dose: 50 mg Hydrochlorothiazide (Hydrochlorothiazide) 12.5 mg PO DAILY [facility] Last Admin: 06/23/17 07:46 Dose: 12.5 mg Labetalol HCl (Normodyne) 50 mg PO BID [facility] Last Admin: 06/23/17 07:48 Dose: 50 mg Levothyroxine Sodium (Levothyroxine) 150 mcg PO ACBREAKFAST [facility] Last Admin: 06/23/17 07:44 Dose: 150 mcg Lorazepam (Ativan) 0.5 mg PO Q6H PRN PRN Reason: Anxiety Last Admin: 06/22/17 22:00 Dose: 0.5 mg Losartan Potassium (Cozaar) 100 mg PO DAILY [facility] Last Admin: 06/23/17 07:49 Dose: 100 mg Lovastatin (Mevacor) 40 mg PO BEDTIME [facility] Last Admin: 06/22/17 20:16 Dose: 40 mg Ondansetron HCl (Zofran) 4 mg IVPUSH Q6H PRN PRN Reason: Nausea/Vomiting Last Admin: 06/22/17 21:13 Dose: 4 mg Potassium Chloride (Klor-Con M20) 20 meq PO TID [facility] Last Admin: 06/23/17 07:44 Dose: 20 meq Sodium Chloride (Saline Flush) 10 ml FLUSH ASDIRECTED PRN PRN Reason: Keep Vein Open Last Admin: 06/23/17 05:01 Dose: 10 ml Sodium Chloride (Saline Flush) 10 ml FLUSH Q12HR PRN PRN Reason: Keep Vein Open Last Admin: 06/22/17 20:16 Dose: 10 ml Triamcinolone Acetonide (Triamcinolone Acetonide 0.025%) 0 gm TOP BID@0800, 2000 [facility] Last Admin: 06/22/17 20:21 Dose: Not Given Discontinued Medications Carbidopa/Levodopa (Sinemet 25-100 Mg) 1 tab PO ONETIME ONE Stop: 06/22/17 13:34 Last Admin: 06/22/17 13:44 Dose: 1 tab Diazepam (Valium) 2.5 mg IVPUSH ONETIME ONE Stop: 06/22/17 11:09 Last Admin: 06/22/17 11:15 Dose: 2.5 mg Enoxaparin Sodium (Lovenox) 60 mg SUBCUT Q24H [facility] Last Admin: 06/22/17 13:02 Dose: 60 mg Famotidine (Pepcid) 40 mg IVPUSH ONETIME ONE Stop: 06/22/17 10:37 Last Admin: 06/22/17 10:56 Dose: 40 mg Fentanyl (Sublimaze) 50 mcg IVPUSH ONETIME ONE Stop: 06/22/17 10:57 Last Admin: 06/22/17 10:59 Dose: 50 mcg Fentanyl (Sublimaze) 50 mcg IVPUSH ONETIME ONE Stop: 06/22/17 11:56 Last Admin: 06/22/17 12:01 Dose: 50 mcg Hydralazine HCl (Apresoline) 10 mg IVPUSH ONETIME ONE Stop: 06/22/17 11:42 Last Admin: 06/22/17 11:46 Dose: 10 mg Ondansetron HCl (Zofran) 4 mg IVPUSH ONETIME ONE Stop: 06/22/17 10:56 Last Admin: 06/22/17 10:59 Dose: 4 mg Temazepam (Restoril) 15 mg PO BEDTIME PRN PRN Reason: Insomnia - Exam Quality Assessment: DVT Prophylaxis (Lovenox therapy), Skin Breakdown (Rash left leg as below). No: Supplemental Oxygen, Central Line/PICC, Urine Catheter General: Alert, Oriented, Cooperative, No Acute Distress HEENT: Pupils Equal, Pupils Reactive, EOMI, Mucous Membr. Moist/[place] Neck: Supple, Trachea Midline, No JVD, No Thyromegaly, Carotid Bruit (Moderate bilateral carotid bruits versus transmitted heart sounds). No: Lymphadenopathy Lungs: Normal Respiratory Effort, Rales (Mild bilateral basilar rales). No: Rhonchi, Rub, Wheezing Cardiovascular: Regular Rhythm, Bradycardia, Murmurs (2/6 FLETCHER at the aortic and mitral valves). No: Gallops, Rubs GI/Abdominal Exam: Normal Bowel Sounds, Soft, Non-Tender, No Organomegaly, No Distention, No Abnormal Bruit, No Mass, Pelvis Stable. No: Guarding (Female) Exam: Deferred Back Exam: Normal Inspection, Full Range of Motion. No: CVA Tenderness (L), CVA Tenderness (R), Muscle Spasm Extremities: Normal Range of Motion, Non-Tender, No Pedal Edema, Normal Capillary Refill, Other (Lateral distal fibular surface of the left leg shows persistent moderate inflammation and excoriation with no local signs of infection). No: Candy's Sign Peripheral Pulses: 1+: Dorsalis Pedis (L), Dorsalis Pedis (R), 2+: Radial (L), Radial (R) Skin: Warm, Dry, Rash (As above), Ecchymosis (Mild ecchymosis at Lovenox injection site) Wound/Incisions: Healing Well, No Drainage, Erythema Improving Neurological: No New Focal Deficit, Other (No clinical orthostasis) Psy/Mental Status: Alert, Normal Affect, Normal Mood. No: Depressed, Agitated, Hallucinations, Withdrawal Symptoms EKG INTERPRETATION EKG Date: 06/23/17 Time: 07:34 Rhythm: Other (Sinus bradycardia) Rate (Beats/Min): 57 [place]: Normal (Neutral cardiac axis) P-Wave: Enlarged (Mild Diffuse biphasic P waves with poor R-wave progression in the anterior leads) QRS: Normal (QRS interval of 0.08 seconds representing repolarization changes) ST-T: Other (T-wave inversion in leads V1 and aVL with flat T-wave in lead V1 since last EKG on 06/22/17) QT: Normal VT/PQ Interval: 0.18 seconds Comparison: Change From Previous EKG (As above) EKG Interpretation Comments: 1. No acute ischemic changes 2. Questionable lateral wall ischemia - Problem List & Annotations (1) Hypertension SNOMED Code(s): 46080271 Code(s): I10 - ESSENTIAL (PRIMARY) HYPERTENSION Status: Acute Priority: High Current Visit: Yes Qualifiers: Hypertension type: essential hypertension Qualified Code(s): I10 - Essential (primary) hypertension Annotation/Comment:: Her blood pressures did improve during this hospitalization with average systolic blood pressures in the 150s. Continue medication adjustment during this hospitalization. Note resolution of her headaches with negative CT of the head results in the emergency room for acute changes. Neurological checks have been stable (2) Palliative care status SNOMED Code(s): 082168924 Code(s): Z51.5 - ENCOUNTER FOR PALLIATIVE CARE Status: Chronic Priority: Medium Current Visit: Yes Annotation/Comment:: NO CODE STATUS confirmed with the patient on admission with patient also not wishing to be transferred to [place] (3) CHF (congestive heart failure) SNOMED Code(s): 99447803 Code(s): I50.9 - HEART FAILURE, UNSPECIFIED Status: Acute Priority: High Current Visit: Yes Onset Date: 06/22/17 Qualifiers: Congestive heart failure type: unspecified congestive heart failure type Congestive heart failure chronicity: acute Qualified Code(s): I50.9 - Heart failure, unspecified Annotation/Comment:: No chest pain or anginal complaints. Dependent edema has resolved with IV Lasix, which will be decreased secondary to her progressive creatinine elevation. Significant clinical improvement despite mildly elevated BNP and secondary troponin I changes, which are still normal. BNP elevation can be explained by patient's progressive renal insufficiency secondary to her Lasix therapy. No additional GALO inhibitor therapy secondary to her previous history of renal artery stenosis with the patient already on an angiotensin II receptor monserrat. No repeat echocardiogram secondary to her no code status (4) Coronary artery disease SNOMED Code(s): 80320730 Code(s): I25.10 - ATHSCL HEART DISEASE OF [place] CORONARY ARTERY W/O ANG PCTRS Status: Chronic Priority: Medium Current Visit: Yes Qualifiers: Coronary Disease-Associated Artery/Lesion type: [place] artery [place] vs. transplanted heart: [place] heart Associated angina: without angina Qualified Code(s): I25.10 - Atherosclerotic heart disease of [place] coronary artery without angina pectoris Annotation/Comment:: Negative workup for acute ME. No chest pain or anginal complaints. Chest pain protocol was not initiated in the emergency room injury to absence of anginal symptoms. Note moderate bradycardia on arrival with patient taking an additional half dose of her labetalol prior to admission. Some improvement of her bradycardia and hypertension with IV hydralazine therapy , which was continued orally at an increased 3 times a day regimen during this hospitalization. Her labetalol was changed to a 50 mg twice a day regimen this morning with further medication adjustments depending on her bradycardia, clinical course, etc. Glycosylated hemoglobin and lipid panel normal today (5) D-dimer, elevated SNOMED Code(s): 432588245 Code(s): R79.89 - OTHER SPECIFIED ABNORMAL FINDINGS OF BLOOD CHEMISTRY Status: Chronic Priority: Medium Current Visit: Yes Annotation/Comment:: Venous Doppler studies of the lower extremities were negative yesterday with final radiological report received. Subcutaneous Lovenox therapy at the cardiac dose was initiated on admission. No CTA of the chest for now secondary to her renal insufficiency with no clinical evidence of DVT or PE. Lovenox will be decreased to DVT prophylaxis regimen secondary to her renal function. Increase activity as tolerated (6) Hypoalbuminemia SNOMED Code(s): 625698363 Code(s): E88.09 - OTH DISORDERS OF PLASMA-PROTEIN METABOLISM, NEC Status: Acute Priority: Medium Current Visit: Yes Onset Date: 06/22/17 Annotation/Comment:: High-protein Glucerna supplements as snacks during this hospitalization with close follow-up at discharge by regular providers (7) Hypothyroidism (acquired) SNOMED Code(s): 777930479 Code(s): E03.9 - HYPOTHYROIDISM, UNSPECIFIED Status: Chronic Priority: High Current Visit: Yes Annotation/Comment:: TSH significantly elevated despite history of medication compliance. L thyroxine therapy was increased on admission with repeat TSH in about 4 weeks recommended (8) Iron deficiency anemia SNOMED Code(s): 61763503 Code(s): D50.9 - IRON DEFICIENCY ANEMIA, UNSPECIFIED Status: Chronic Priority: Medium Current Visit: Yes Qualifiers: Iron deficiency anemia type: unspecified iron deficiency Qualified Code(s) : D50.9 - Iron deficiency anemia, unspecified Annotation/Comment:: Mildly decreased TIBC secondary to her hypoalbuminemia with no significant iron deficiency at this time, although transferred level is still pending. Previous history of iron deficiency and vitamin B-12 anemia with iron replacement on an outpatient basis during a 5 day period in March and April of last year. She is currently on vitamin B-12 supplementation. Relatively stable hemoglobin today with additional renal component to her anemia. Repeat blood work in the a.m. (9) Mixed anxiety depressive disorder SNOMED Code(s): 444408602 Code(s): F41.8 - OTHER SPECIFIED ANXIETY DISORDERS Status: Chronic Priority: Medium Current Visit: Yes Annotation/Comment:: Improved this morning with initiation of when necessary Ativan and Celexa. Moderate control in the emergency room. Continue to observe closely. IV diazepam given in the emergency room. Close follow-up by regular providers recommended (10) Osteoarthritis SNOMED Code(s): 075474613 Code(s): M19.90 - UNSPECIFIED OSTEOARTHRITIS, UNSPECIFIED SITE Status: Chronic Priority: Medium Current Visit: Yes Qualifiers: Osteoarthritis location: multiple joints Osteoarthritis type: primary Qualified Code(s): M15.0 - Primary generalized (osteo)arthritis Annotation/Comment:: Stable by history including chronic low back pain. Note significant bilateral coxarthrosis by x-rays today (11) Peptic reflux disease SNOMED Code(s): 38581658 Code(s): K21.9 - GASTRO-ESOPHAGEAL REFLUX DISEASE WITHOUT ESOPHAGITIS Status: Chronic Priority: Medium Current Visit: Yes Annotation/Comment:: No abdominal complaints other than nonspecific nausea on admission, which has since resolved. High-dose IV Pepcid given in the emergency room. Continue to observe closely (12) Renal insufficiency SNOMED Code(s): 523704765 Code(s): N28.9 - DISORDER OF KIDNEY AND URETER, UNSPECIFIED Status: Chronic Priority: Medium Current Visit: Yes Annotation/Comment:: Note progressive renal insufficiency secondary to IV Lasix therapy as above. History of renal artery stenosis and proteinuria. Continue to observe closely (13) Hyponatremia SNOMED Code(s): 52888126 Code(s): E87.1 - HYPO-OSMOLALITY AND HYPONATREMIA Status: Acute Priority : Medium Current Visit: Yes Onset Date: 06/23/17 Annotation/Comment:: Mild hyponatremia today likely secondary to IV Lasix therapy. Decrease Lasix as above. - Problem List Review Problem List Initiated/Reviewed/Updated: Yes - My Orders Last 24 Hours: My Active Orders 06/22/17 12:31 Docusate Sodium [Colace] 100 mg PO DAILY PRN 06/22/17 12:32 Venous Doppler Lwr Ext Bi [US] Urgent Acetaminophen [Tylenol] 650 mg PO Q4H PRN Sodium Chloride 0.9% [Saline Flush] 10 ml FLUSH Q12HR PRN 06/22/17 12:33 Antiembolic Devices [RC] .Routine Antiembolic Devices [RC] 08,20 Communication Order [RC] 0800 Communication, Vaccine [RC] PER UNIT ROUTINE Height and Weight [RC] DAILY Intake and Output Strict [RC] 08,20 Oxygen Therapy [RC] PRN Pulse Oximetry [RC] ASDIRECTED Up With Assistance [RC] 0800 VTE/DVT Education [RC] DAILY Vaccines to be Administered [RC] PER UNIT ROUTINE OCCULT BLOOD DIAGNOSTIC [OP] Stat Antiembolic Hose [OM.PC] Routine CHF Questionnaire [COMM] Routine DVT/VTE Prophylaxis Reflex [OM.PC] Routine GM Immunization Reflex [OM.PC] Click To Edit 06/22/17 12:37 Communication Order [RC] Q4HR 06/22/17 12:42 Comfort Measures [OM.PC] Routine 06/22/17 12:43 Ondansetron [Zofran] 4 mg IVPUSH Q6H PRN 06/22/17 12:45 H PYLORI STOOL ANTIGEN [MREF] 06/22/17 13:00 Furosemide [Lasix] 40 mg IVPUSH Q8H hydrALAZINE [Apresoline] 50 mg PO Q8H 06/22/17 14:00 fentaNYL [Sublimaze] 50 mcg IVPUSH Q6H PRN 06/22/17 15:56 LORazepam [Ativan] 0.5 mg PO Q6H PRN 06/22/17 15:57 Communication Order [RC] 199906/22/17 16:00 Carbidopa/Levodopa [Sinemet 25-100 mg] 1 tab PO QID 06/22/17 18:00 Potassium Chloride [Klor-Con M20] 20 meq PO TID 06/22/17 20:00 Lovastatin [Mevacor] 40 mg PO BEDTIME Triamcinolone Acetonide [Triamcinolone Acetonide 0.025%] 0 gm TOP BID@0800, 199906/23/17 05:11 Communication Order [RC] BID EKG Documentation Completion [RC] ASDIRECTED Abdomen Series w Chest 1V [CR] Routine 06/23/17 06:50 TRANSFERRIN [REF] Routine 06/23/17 07:30 Levothyroxine 150 mcg PO ACBREAKFAST 06/23/17 08:00 Aspirin [Halfprin] 81 mg PO DAILY Calcitriol [Rocaltrol] 0.25 mcg PO DAILY Cholecalciferol (Vitamin D3) [Vitamin D3] 1,000 units PO DAILY Citalopram [Celexa] 10 mg PO DAILY Cyanocobalamin (Vitamin B12) [Vitamin B12] 1,000 mcg PO DAILY Hydrochlorothiazide 12.5 mg PO DAILY Labetalol [Normodyne] 50 mg PO BID Losartan [Cozaar] 100 mg PO DAILY 06/23/17 08:57 Vital Signs [RC] Q6HR 06/23/17 13:00 Enoxaparin [Lovenox] 30 mg SUBCUT Q24H 06/23/17 Breakfast Fluid Restriction [DIET] 06/24/17 05:11 BASIC METABOLIC PANEL,BMP [CHEM] Routine CBC WITH AUTO DIFF [HEME] Routine D-DIMER QUANTITATIVE [COAG] Routine PRO B-TYPE NATRIUR PEPT,BNPPRO [CHEM] Routine TROPONIN I [CHEM] Routine - Assessment Assessment:: As above - Plan Plan:: As above. Extensive precautions were given to the patient, who is in agreement with the treatment plan. Patient will require an additional 2 days of inpatient care secondary to multiple health issues as above. Continue telemetry secondary to her bradycardia
[2017-06-23] MEDS: Triamcinolone Acetonide 0.025% Crm 15 GM Tube TOP SCH ×2 (09:12→20:10)
[2017-06-23] MEDS: Ondansetron 4 MG/2 ML SDV IVPUSH PRN (09:19)
[2017-06-23] MEDS: Famotidine 20 MG/2 ML SDV IVPUSH SCH (10:37)
[2017-06-23] MEDS ORDERED: Enoxaparin 30 MG/0.3 ML Syringe SUBCUT SCH (13:00)
[2017-06-23] MEDS: LORazepam 0.5 MG Tab PO PRN (20:10)
[2017-06-24] MEDS: hydrALAZINE 50 MG Tab PO SCH (05:09)
[2017-06-24] MEDS: Labetalol 100 MG Tab PO SCH (07:58)
[2017-06-24] MEDS: Hydrochlorothiazide 25 MG Tab PO SCH (07:59)
[2017-06-24] MEDS: Calcitriol 0.25 MCG Cap PO SCH (08:00)
[2017-06-24] MEDS: Carbidopa/Levodopa 25-100 MG Tab PO SCH (08:00)
[2017-06-24] MEDS: Aspirin 81 MG Tab.EC PO SCH (08:00)
[2017-06-24] MEDS: Citalopram 20 MG Tab PO SCH (08:01)
[2017-06-24] MEDS: Cyanocobalamin (Vitamin B12) 1,000 MCG Tab PO SCH (08:01)
[2017-06-24] MEDS: Losartan 50 MG Tab PO SCH (08:02)
[2017-06-24] MEDS: Potassium Chloride 20 MEQ Tab.ER PO SCH (08:02)
[2017-06-24] MEDS: Cholecalciferol (Vitamin D3) 1,000 Unit Tab PO SCH (08:03)
[2017-06-24] MEDS: Levothyroxine 150 MCG Tab PO SCH (08:03)
[2017-06-24] MEDS: Furosemide 40 MG/4 ML VIAL IVPUSH SCH (08:04)
[2017-06-24] MEDS: Famotidine 20 MG/2 ML SDV IVPUSH SCH (08:04)
[2017-06-24] MEDS: Triamcinolone Acetonide 0.025% Crm 15 GM Tube TOP SCH (08:25)
--- NOTE | 2017-06-24 09:09 | PCM.DCSUM1 ---
Discharge Summary - Hospital Course HPI Initial Comments: See emergency room note/admission H&P Brief History: See emergency room note/admission H&P - Discharge Data Discharge Date: 06/24/17 Discharge Disposition: Home, W Home Health Agency 06 Condition: Fair - Discharge Diagnosis/Problem(s) (1) Hypertension SNOMED Code(s): 69303067 ICD Code: I10 - ESSENTIAL (PRIMARY) HYPERTENSION Status: Acute Priority: High Current Visit: Yes Problem Details: Her blood pressures continued to improve during this hospitalization with systolic blood pressure of 115 prior to discharge with average systolic blood pressures in the 150s and no history of orthostasis, etc.. Despite my recommendations for an additional day of hospitalization and continued medication adjustment the patient insists on going home today. 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 Low-dose Lasix at discharge. Once again she insists on going home today. Close follow-up by her regular provider as per discharge instructions. The patient does agree to initiation of home health for medication set up, etc. with history of medication noncompliance in the past, although the patient denies this fact. Note resolution of her headaches yesterday with negative CT of the head results for acute changes in the emergency room. Neurological checks were normal during this hospitalization Qualifiers: Hypertension type: essential hypertension Qualified Code(s): I10 - Essential (primary) hypertension (2) Palliative care status SNOMED Code(s): 021236931 ICD Code: Z51.5 - ENCOUNTER FOR PALLIATIVE CARE Status: Chronic Priority : Medium Current Visit: Yes Problem Details: NO CODE STATUS confirmed with the patient on admission with patient also not wishing to be transferred to [place] (3) CHF (congestive heart failure) SNOMED Code(s): 94563082 ICD Code: I50.9 - HEART FAILURE, UNSPECIFIED Status: Acute Priority: High Current Visit: Yes Onset Date: 06/22/17 Problem Details: No chest pain or anginal complaints. Dependent edema resolved with IV Lasix, which will be further decreased secondary to her progressive creatinine elevation. Significant clinical improvement, including improved mildly elevated BNP and secondary troponin I changes, which are still normal. BNP elevation can also be explained by patient's progressive renal insufficiency secondary to her Lasix therapy. No additional GALO inhibitor therapy secondary to her previous history of renal artery stenosis with the patient already on an angiotensin II receptor monserrat and is closely followed by a filer metal patterns in [place]. No repeat echocardiogram secondary to her no code status Qualifiers: Congestive heart failure type: unspecified congestive heart failure type Congestive heart failure chronicity: acute Qualified Code(s): I50.9 - Heart failure, unspecified (4) Coronary artery disease SNOMED Code(s): 81005409 ICD Code: I25.10 - ATHSCL HEART DISEASE OF [place] CORONARY ARTERY W/O ANG PCTRS Status: Chronic Priority: Medium Current Visit: Yes Problem Details: Negative workup for acute LA. No chest pain or anginal complaints. Chest pain protocol was not initiated in the emergency room secondary to absence of anginal symptoms. Note moderate bradycardia on arrival with patient taking an additional half dose of her labetalol prior to admission. Some improvement of her bradycardia and hypertension with IV hydralazine therapy in the emergency room, which was continued orally at an increased 3 times a day regimen during this hospitalization. Her labetalol was changed to a 50 mg twice a day regimen yesterday morning with stable bradycardia at this time. Glycosylated hemoglobin and lipid panel were normal during this hospitalization Qualifiers: Coronary Disease-Associated Artery/Lesion type: [place] artery [place] vs. transplanted heart: [place] heart Associated angina: without angina Qualified Code(s): I25.10 - Atherosclerotic heart disease of [place] coronary artery without angina pectoris (5) D-dimer, elevated SNOMED Code(s): 825911811 ICD Code: R79.89 - OTHER SPECIFIED ABNORMAL FINDINGS OF BLOOD CHEMISTRY Status: Chronic Priority: Medium Current Visit: Yes Problem Details: D- dimer continues to improve with low-dose Lovenox. Venous Doppler studies of the lower extremities were negative on admission with final radiological report received yesterday. Subcutaneous Lovenox therapy at the cardiac dose was initiated on admission. No CTA of the chest for now secondary to her renal insufficiency with no clinical evidence of DVT or PE. Lovenox was decreased to DVT prophylaxis regimen yesterday secondary to her renal function. Increase activity as tolerated (6) Hypoalbuminemia SNOMED Code(s): 583612941 ICD Code: E88.09 - OTH DISORDERS OF PLASMA-PROTEIN METABOLISM, NEC Status: Acute Priority: Medium Current Visit: Yes Onset Date: 06/22/17 Problem Details: High-protein Glucerna supplements as snacks during this hospitalization with close follow-up at discharge by regular providers (7) Hypothyroidism (acquired) SNOMED Code(s): 223529252 ICD Code: E03.9 - HYPOTHYROIDISM, UNSPECIFIED Status: Chronic Priority: High Current Visit: Yes Problem Details: TSH significantly elevated despite history of medication compliance. L thyroxine therapy was increased on admission with repeat TSH in about 4 weeks recommended (8) Iron deficiency anemia SNOMED Code(s): 87440232 ICD Code: D50.9 - IRON DEFICIENCY ANEMIA, UNSPECIFIED Status: Chronic Priority: Medium Current Visit: Yes Problem Details: Mildly decreased TIBC secondary to her hypoalbuminemia with no significant iron deficiency at this time, although Transferin level is still pending. Previous history of iron deficiency and vitamin B-12 anemia with iron replacement on an outpatient basis during a 5 day period in March and April of last year. She is currently on vitamin B-12 supplementation. Relatively stable hemoglobin today with additional renal component to her anemia. Repeat blood work at follow-up as per discharge instructions. Qualifiers: Iron deficiency anemia type: unspecified iron deficiency Qualified Code(s) : D50.9 - Iron deficiency anemia, unspecified (9) Mixed anxiety depressive disorder SNOMED Code(s): 432828996 ICD Code: F41.8 - OTHER SPECIFIED ANXIETY DISORDERS Status: Chronic Priority: Medium Current Visit: Yes Problem Details: Improved during this hospitalization with initiation of when necessary Ativan and the patient started on Celexa. Moderate control of her anxiety and depression in the emergency room. Continue to observe closely. IV diazepam given in the emergency room. Close follow-up by regular providers recommended. No Ativan at discharge, however low-dose Celexa will be continued (10) Osteoarthritis SNOMED Code(s): 129746827 ICD Code: M19.90 - UNSPECIFIED OSTEOARTHRITIS, UNSPECIFIED SITE Status: Chronic Priority: Medium Current Visit: Yes Problem Details: Stable by history including chronic low back pain. Note significant bilateral coxarthrosis by x-rays yesterday Qualifiers: Osteoarthritis location: multiple joints Osteoarthritis type: primary Qualified Code(s): M15.0 - Primary generalized (osteo)arthritis (11) Peptic reflux disease SNOMED Code(s): 91335896 ICD Code: K21.9 - GASTRO-ESOPHAGEAL REFLUX DISEASE WITHOUT ESOPHAGITIS Status: Chronic Priority: Medium Current Visit: Yes Problem Details: No abdominal complaints other than nonspecific nausea on admission, which has since resolved. High-dose IV Pepcid given in the emergency room. Continue to observe closely (12) Renal insufficiency SNOMED Code(s): 825839089 ICD Code: N28.9 - DISORDER OF KIDNEY AND URETER, UNSPECIFIED Status: Chronic Priority: Medium Current Visit: Yes Problem Details: Note progressive renal insufficiency secondary to IV Lasix therapy as above. History of renal artery stenosis and proteinuria. Continue to observe closely (13) Hyponatremia SNOMED Code(s): 50821009 ICD Code: E87.1 - HYPO-OSMOLALITY AND HYPONATREMIA Status: Acute Priority : Medium Current Visit: Yes Onset Date: 06/23/17 Problem Details: Progressive hyponatremia despite decreased IV Lasix therapy yesterday. Patient refuses additional day of hospitalization as above. (14) Aortic valve stenosis SNOMED Code(s): 00370520 ICD Code: I35.0 - NONRHEUMATIC AORTIC (VALVE) STENOSIS Status: Chronic Priority: Medium Current Visit: Yes Problem Details: Moderate aortic valve stenosis and mitral valve insufficiency by clinical exam. Note the patient is already on labetalol. She does not wish to have any further cardiac workup, including echocardiogram, etc. at this time. 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 Continue to observe closely by her regular provider. No significant change despite progressive hyponatremia as above (16) Constipation SNOMED Code(s): 11409171 ICD Code: K59.00 - CONSTIPATION, UNSPECIFIED Status: Chronic Priority: Medium Current Visit: Yes Problem Details: No bowel movement during this hospitalization. Patient refuses any medical therapy, however she does plan to take a suppository at home at discharge Qualifiers: Constipation type: chronic idiopathic constipation Qualified Code(s): K59.04 - Chronic idiopathic constipation (17) Dermatitis SNOMED Code(s): 68873273 ICD Code: L30.9 - DERMATITIS, UNSPECIFIED Status: Chronic Priority: Medium Current Visit: Yes Problem Details: Improved probable allergic dermatitis of her left leg with current triamcinolone therapy - Patient Summary/Data Operative Procedure(s) Performed: None Complications: No complications however note progressive hyponatremia as above Consults: Consultations 06/24/17 08:56 Consult to Home Health [CONS] Routine Labs Pending at D/C: Transferin level Recommended Follow-up Testing/Procedures: As per discharge instructions Planned Operative Procedure(s) after DC: None Hospital Course: Patient was admitted to inpatient/acute care on telemetry secondary to labile hypertension, nonspecific headaches, etc. Note negative workup for acute LA as above including serial cardiac enzymes and EKGs 2. Patient insists on going home today as above. Note multiple medication adjustments during this hospitalization as above. She does agree to home health at discharge to ensure better medication compliance - Patient Instructions Diet: Fluid Restriction (Heart healthy, renal diverticulosis) Diet, Other: High-protein Glucerna supplements twice a day as snacks Fluid Restriction: 2000 mL Activity: As Tolerated (With strict fall precautions and continued walker chair use) Driving: Do Not Drive Showering/Bathing: May Shower Notify Provider of: Fever, Increased Pain, Nausea and/or Vomiting Other/Special Instructions: 1. Follow-up with your regular provider, Jose Nevarez PA-C, at the [facility] in [place], as scheduled on 07/01/16 at 13: 30 hours with recommended CBC, comprehensive metabolic panel, uric acid level, magnesium level, BNP, troponin I, CK, CK-MB, and phosphate level. 2. Otherwise follow-up with your kidney doctor/filer metal patterns as already scheduled. 3. Home health has been set up at discharge for medication adjustment, etc. 4. TSH should be repeated in 4 weeks secondary to medication adjustments during this hospitalization - Discharge Plan Prescriptions/Med Rec: Citalopram Hydrobromide [Celexa] 10 mg PO DAILY #30 tablet Furosemide 10 mg PO DAILY #10 tablet hydrALAZINE [Apresoline] 50 mg PO Q8H #90 tablet Labetalol [Normodyne] 50 mg PO BID #30 tablet Levothyroxine 150 mcg PO ACBREAKFAST #60 tablet Potassium Chloride 10 meq PO DAILY #20 cap.er Triamcinolone Acetonide [Triamcinolone Acetonide 0.025%] 1 gm TOP BID@0800,2000 #1 tube Home Medications: Home Meds Aspirin [Ecotrin] 81 mg PO DAILY 04/06/17 [History] Calcitriol 0.25 mcg PO DAILY 04/06/17 [History] Carbidopa/Levodopa [Carbidopa-Levo 25-100 MG ODT] 1 tab PO QID 04/06/17 [History ] Cholecalciferol (Vitamin D3) [Vitamin D3] 1,000 unit PO DAILY 04/06/17 [History] Cyanocobalamin (Vitamin B12) [Vitamin B12] 1,000 mcg PO DAILY 04/06/17 [History] Docusate Sodium [Colace] 1 tab PO DAILY PRN 04/06/17 [History] Losartan/Hydrochlorothiazide [Losartan-HCTZ 100-12.5 MG] 1 tab PO DAILY [History] Lovastatin 40 mg PO BEDTIME 04/06/17 [History] Bisacodyl [Dulcolax] 10 mg RC DAILY PRN 06/23/17 [History] Acetaminophen [Tylenol] 650 mg PO Q4H PRN tablet 06/24/17 [Rx] Citalopram Hydrobromide [Celexa] 10 mg PO DAILY #30 tablet 06/24/17 [Rx] Furosemide 10 mg PO DAILY #10 tablet 06/24/17 [Rx] Labetalol [Normodyne] 50 mg PO BID #30 tablet 06/24/17 [Rx] Levothyroxine 150 mcg PO ACBREAKFAST #60 tablet 06/24/17 [Rx] Potassium Chloride 10 meq PO DAILY #20 cap.er 06/24/17 [Rx] Triamcinolone Acetonide [Triamcinolone Acetonide 0.025%] 1 gm TOP BID@0800,2000 #1 tube 06/24/17 [Rx] hydrALAZINE [Apresoline] 50 mg PO Q8H #90 tablet 06/24/17 [Rx] Patient Handouts: Hypertension, Qtem-nt-Cmqp, Heart-Healthy Eating Plan, Easy- to-Read, Food Basics for Chronic Kidney Disease, High-Fiber Diet Forms: ED Department Discharge Referrals: Jose Nevarez PA [Primary Care Provider] - (Appointment with Jose Nevarez July 01 at 1:30) - Discharge Summary/Plan Comment DC Time >30 min.: Yes Discharge Summary/Plan Comment: As above. Extensive precautions were given to the patient, who is in agreement with the treatment plan. See Patient Instructions for further treatment and plan. Note that telephone consultation with patient's [id number] and caregiver, Lawanda Fierro, this morning prior to patient's discharge updating her concerning medication changes, treatment plan, etc. - General Info Date of Service: 06/24/17 Functional Status: Reports: Pain Controlled, Tolerating Diet, Ambulating ( Walker chair). Denies: Urinating, New Symptoms, Incentive Spirometry Numeric/FACES Score: 0 - Review of Systems General: Reports: No Symptoms. Denies: Fever, Weakness, Fatigue, Malaise, Chills, Night Sweats, Appetite (Appetite good) HEENT: Reports: No Symptoms, Glasses. Denies: Ear Pain, Eye Pain, Headaches, Post Nasal Drip, Sinus Congestion, Sore Throat, Rhinitis, Visual Changes Pulmonary: Reports: No Symptoms. Denies: Shortness of Breath, Pleuritic Chest Pain, Cough, Sputum, Wheezing Cardiovascular: Reports: No Symptoms. Denies: Chest Pain, Palpitations, Dyspnea on Exertion, Orthopnea, PND, Edema (Resolved dependent edema), Lightheadedness Gastrointestinal: Reports: Constipation (Patient refuses medications as above), Other (No bowel movement during this hospitalization). Denies: Abdominal Pain, Decreased Appetite, Diarrhea, Difficulty Swallowing, Flatus, Hematochezia, Melena, Nausea, Vomiting Genitourinary: Reports: No Symptoms. Denies: Dysuria, Frequency, Burning, Pain , Urgency, Incontinence, Hematuria, Retention, Flank Pain Musculoskeletal: Reports: Back Pain (Stable chronic low back pain), Joint Pain ( Stable chronic bilateral hip pain). Denies: Neck Pain, Shoulder Pain, Arm Pain , Leg Pain, Foot Pain, Joint Swelling Skin: Reports: Pruritis (As below), Rash (Improved left lower leg rash and pruritus). Denies: Pallor, Diaphoresis Neurological: Reports: Confusion (Borderline organic brain syndrome), Difficulty Walking (Walker use required secondary to coxarthrosis, etc.), Other (Restless leg syndrome under control). Denies: Dizziness, Headache, Numbness, Paresthesia, Syncope, Tingling, Weakness Psychiatric: Reports: Confusion (As above), Depression (Borderline), Anxiety ( Mild and improved). Denies: Agitation, Cravings, Hallucinations, Suicidal Ideation, Homicidal Ideation - Patient Data Vitals - Most Recent: Last Vital Signs Temp 36.3 C 06/24/17 07:05 Pulse 56 L 06/24/17 07:58 Resp 17 06/24/17 07:05 BP 115/55 L 06/24/17 08:02 Pulse Ox 96 06/24/17 07:05 Vital Signs (72 hours) 06/22/17 06/22/17 06/22/17 10:35 10:49 11:05 Temperature [ Oral] Temperature [ Temporal] Pulse, Peripheral Pulse, 56 L 51 L 47 L Peripheral [ Pulse Oximetry] Respiratory 18 24 H 22 H Rate Blood Pressure Blood Pressure [Left Upper Arm ] Blood Pressure 194/85 H 209/84 H 198/80 H [Right Upper Arm] O2 Sat by Pulse 99 98 97 Oximetry O2 Sat by Pulse Oximetry [Room Air] 06/22/17 06/22/17 06/22/17 11:10 11:21 11:41 Temperature [ Oral] Temperature [ 36.9 C Temporal] Pulse, Peripheral Pulse, 53 L Peripheral [ Pulse Oximetry] Respiratory 22 H Rate Blood Pressure Blood Pressure 201/90 H [Left Upper Arm ] Blood Pressure 182/81 H 210/69 H [Right Upper Arm] O2 Sat by Pulse 99 Oximetry O2 Sat by Pulse Oximetry [Room Air] 06/22/17 06/22/17 06/22/17 11:54 12:33 16:39 Temperature [ Oral] Temperature [ 36.8 C 36.4 C 36.5 C Temporal] Pulse, Peripheral Pulse, 48 L 53 L 54 L Peripheral [ Pulse Oximetry] Respiratory 24 H 19 18 Rate Blood Pressure Blood Pressure 156/73 H 148/62 H [Left Upper Arm ] Blood Pressure 167/78 H [Right Upper Arm] O2 Sat by Pulse 97 97 96 Oximetry O2 Sat by Pulse 96 Oximetry [Room Air] 06/22/17 06/22/17 06/23/17 20:00 20:17 04:00 Temperature [ 36.4 C 36.2 C Oral] Temperature [ Temporal] Pulse, Peripheral Pulse, 57 L 55 L Peripheral [ Pulse Oximetry] Respiratory 20 20 Rate Blood Pressure 126/67 Blood Pressure 130/59 L [Left Upper Arm ] Blood Pressure [Right Upper Arm] O2 Sat by Pulse 95 98 Oximetry O2 Sat by Pulse Oximetry [Room Air] 06/23/17 06/23/17 06/23/17 05:01 07:48 07:49 Temperature [ Oral] Temperature [ Temporal] Pulse, 60 Peripheral Pulse, Peripheral [ Pulse Oximetry] Respiratory Rate Blood Pressure 130/59 L 152/81 H 152/81 H Blood Pressure [Left Upper Arm ] Blood Pressure [Right Upper Arm] O2 Sat by Pulse Oximetry O2 Sat by Pulse Oximetry [Room Air] 06/23/17 06/23/17 06/23/17 07:51 11:13 11:59 Temperature [ 36.8 C 36.3 C Oral] Temperature [ Temporal] Pulse, Peripheral Pulse, 60 51 L Peripheral [ Pulse Oximetry] Respiratory 16 17 Rate Blood Pressure 153/74 H Blood Pressure 152/81 H [Left Upper Arm ] Blood Pressure 153/74 H [Right Upper Arm] O2 Sat by Pulse 96 95 Oximetry O2 Sat by Pulse Oximetry [Room Air] 06/23/17 06/23/17 06/23/17 17:08 17:10 20:09 Temperature [ Oral] Temperature [ 37.1 C Temporal] Pulse, 61 Peripheral Pulse, 61 Peripheral [ Pulse Oximetry] Respiratory 18 Rate Blood Pressure 173/74 H 152/81 H Blood Pressure 179/73 H [Left Upper Arm ] Blood Pressure [Right Upper Arm] O2 Sat by Pulse 98 Oximetry O2 Sat by Pulse Oximetry [Room Air] 06/24/17 06/24/17 06/24/17 00:00 05:09 05:17 Temperature [ 36.5 C 36.6 C Oral] Temperature [ Temporal] Pulse, Peripheral Pulse, 58 L 64 Peripheral [ Pulse Oximetry] Respiratory 18 18 Rate Blood Pressure 153/64 H Blood Pressure [Left Upper Arm ] Blood Pressure 152/72 H 153/64 H [Right Upper Arm] O2 Sat by Pulse 96 97 Oximetry O2 Sat by Pulse Oximetry [Room Air] 06/24/17 06/24/17 06/24/17 07:05 07:58 08:02 Temperature [ 36.3 C Oral] Temperature [ Temporal] Pulse, 56 L Peripheral Pulse, 56 L Peripheral [ Pulse Oximetry] Respiratory 17 Rate Blood Pressure 115/55 L 115/55 L Blood Pressure 115/55 L [Left Upper Arm ] Blood Pressure [Right Upper Arm] O2 Sat by Pulse 96 Oximetry O2 Sat by Pulse Oximetry [Room Air] Weight - Most Recent: 60.419 kg I&O - Last 24 hours: Intake & Output 06/23/17 06/24/17 06/24/17 22:59 06:59 14:59 Intake Total 750 300 Output Total 1950 1200 Balance -1200 -900 Imaging Impressions - Last 24 hrs: 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 No ectopy or arrhythmia Acute abdominal x-rays on 06/23/17 showed evidence of moderate cardiomegaly and prominence of the proximal aortic arch with additional mild centralized CHF and/ or pulmonary hypertension. Moderate COPD changes with no pulmonary infiltrates, pneumothorax, etc.. Large amounts of stool present with no significant fluid levels, free air, ileus, or obstruction. Surgical clips noted in right upper quadrant consistent with previous laparoscopic cholecystectomy. 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 Venous Doppler studies of the lower extremities bilaterally on 06/22/17 showed no evidence of DVT Lab Results - Last 24 hrs: Laboratory Results - last 24 hr 06/23/17 06/24/17 06/24/17 Range/Units 06:50 06:50 06:50 WBC 4.2 (4.0-10.2) K/uL RBC 3.84 (3.77-5.09) M/uL Hgb 11.3 L (11.7-15.5) g/dL Hct 34.8 (34.0-46.0) % MCV 90.6 (84.0-98.0) fL MCH 29.4 (28.2-33.3) pg MCHC 32.5 (31.7-36.0) g/dL RDW 16.5 H (11.2-14.1) % Plt Count 221 (150-350) K/uL Neut % (Auto) 65.5 (45.0-80.0) % Lymph % (Auto) 18.3 (10.0-50.0) % [place] % (Auto) 12.6 (2.0-14.0) % Eos % (Auto) 3.1 (0.0-5.0) % Baso % (Auto) 0.5 (0.0-2.0) % Neut # (Auto) 2.75 (1.40-7.00) K/uL Lymph # (Auto) 0.77 (0.50-3.50) K/uL [place] # (Auto) 0.53 (0.00-1.00) K/uL Eos # (Auto) 0.13 (0.00-0.50) K/uL Baso # (Auto) 0.02 (0.00-0.20) K/uL D-Dimer, Quantitative 468 H (0-400) ng/mL Sodium (136-145) mmol/L Potassium (3.5-5.1) mmol/L Chloride (98-107) mmol/L Carbon Dioxide (21.0-32.0) mmol/L BUN (7-18) mg/dL Creatinine (0.51-1.17) mg/dL Est Cr Clr Drug Dosing mL/min Estimated GFR (MDRD) mL/min Glucose (74-106) mg/dL Calcium (8.5-10.1) mg/dL Transferrin 180 L (203-362) mg/dL Troponin I (0.000-0.056) ng/mL NT-Pro-B Natriuret Pep (0-125) pg/mL 06/24/17 Range/Units 06:50 WBC (4.0-10.2) K/uL RBC (3.77-5.09) M/uL Hgb (11.7-15.5) g/dL Hct (34.0-46.0) % MCV (84.0-98.0) fL MCH (28.2-33.3) pg MCHC (31.7-36.0) g/dL RDW (11.2-14.1) % Plt Count (150-350) K/uL Neut % (Auto) (45.0-80.0) % Lymph % (Auto) (10.0-50.0) % [place] % (Auto) (2.0-14.0) % Eos % (Auto) (0.0-5.0) % Baso % (Auto) (0.0-2.0) % Neut # (Auto) (1.40-7.00) K/uL Lymph # (Auto) (0.50-3.50) K/uL [place] # (Auto) (0.00-1.00) K/uL Eos # (Auto) (0.00-0.50) K/uL Baso # (Auto) (0.00-0.20) K/uL D-Dimer, Quantitative (0-400) ng/mL Sodium 129 L (136-145) mmol/L Potassium 4.6 (3.5-5.1) mmol/L Chloride 94 L (98-107) mmol/L Carbon Dioxide 26.6 (21.0-32.0) mmol/L BUN 47 H (7-18) mg/dL Creatinine 2.13 H (0.51-1.17) mg/dL Est Cr Clr Drug Dosing 14.31 mL/min Estimated GFR (MDRD) 22 mL/min Glucose 93 (74-106) mg/dL Calcium 9.5 (8.5-10.1) mg/dL Transferrin (203-362) mg/dL Troponin I 0.012 (0.000-0.056) ng/mL NT-Pro-B Natriuret Pep 573 H (0-125) pg/mL Laboratory Tests 06/22/17 06/22/17 06/22/17 Range/Units 10:30 10:30 10:30 WBC 5.1 (4.0-10.2) K/uL RBC 3.82 (3.77-5.09) M/uL Hgb 11.2 L (11.7-15.5) g/dL Hct 35.6 (34.0-46.0) % MCV 93.2 (84.0-98.0) fL MCH 29.3 (28.2-33.3) pg MCHC 31.5 L (31.7-36.0) g/dL RDW 17.0 H (11.2-14.1) % Plt Count 209 (150-350) K/uL Neut % (Auto) 68.6 (45.0-80.0) % Lymph % (Auto) 16.4 (10.0-50.0) % [place] % (Auto) 10.7 (2.0-14.0) % Eos % (Auto) 3.9 (0.0-5.0) % Baso % (Auto) 0.4 (0.0-2.0) % Neut # (Auto) 3.51 (1.40-7.00) K/uL Lymph # (Auto) 0.84 (0.50-3.50) K/uL [place] # (Auto) 0.55 (0.00-1.00) K/uL Eos # (Auto) 0.20 (0.00-0.50) K/uL Baso # (Auto) 0.02 (0.00-0.20) K/uL PT 11.2 (9.8-11.7) SEC INR 1.0 APTT 26.8 (22.1-29.8) SEC D-Dimer, Quantitative 988 H (0-400) ng/mL Sodium (136-145) mmol/L Potassium (3.5-5.1) mmol/L Chloride (98-107) mmol/L Carbon Dioxide (21.0-32.0) mmol/L BUN (7-18) mg/dL Creatinine (0.51-1.17) mg/dL Est Cr Clr Drug Dosing mL/min Estimated GFR (MDRD) mL/min Glucose (74-106) mg/dL Hemoglobin A1c (4.3-5.7) % Lactic Acid (0.4-2.0) mmol/L Uric Acid (2.6-7.2) mg/dL Calcium (8.5-10.1) mg/dL Magnesium (1.8-2.4) mg/dL Iron (50-175) ug/dL TIBC (250-450) ug/dL % Saturation Transferrin (203-362) mg/dL Ferritin (8-388) ng/mL Total Bilirubin (0.2-1.0) mg/dL AST (15-37) U/L ALT (12-78) U/L Alkaline Phosphatase (46-116) IU/L Creatine Kinase (26-308) U/L Creatine Kinase Index (0.0-2.5) % CK-MB (CK-2) (0.00-3.60) ng/mL Troponin I (0.000-0.056) ng/mL NT-Pro-B Natriuret Pep (0-125) pg/mL Total Protein (6.4-8.2) g/dL Albumin (3.4-5.0) g/dL Triglycerides (30-150) mg/dL Cholesterol (100-200) mg/dL LDL Cholesterol, Calc (0-100) mg/dL HDL Cholesterol (40-60) mg/dL TSH, Ultra Sensitive (0.358-3.740) mIU/mL 06/22/17 06/22/17 06/22/17 Range/Units 10:30 10:30 15:52 WBC (4.0-10.2) K/uL RBC (3.77-5.09) M/uL Hgb (11.7-15.5) g/dL Hct (34.0-46.0) % MCV (84.0-98.0) fL MCH (28.2-33.3) pg MCHC (31.7-36.0) g/dL RDW (11.2-14.1) % Plt Count (150-350) K/uL Neut % (Auto) (45.0-80.0) % Lymph % (Auto) (10.0-50.0) % [place] % (Auto) (2.0-14.0) % Eos % (Auto) (0.0-5.0) % Baso % (Auto) (0.0-2.0) % Neut # (Auto) (1.40-7.00) K/uL Lymph # (Auto) (0.50-3.50) K/uL [place] # (Auto) (0.00-1.00) K/uL Eos # (Auto) (0.00-0.50) K/uL Baso # (Auto) (0.00-0.20) K/uL PT (9.8-11.7) SEC INR APTT (22.1-29.8) SEC D-Dimer, Quantitative (0-400) ng/mL Sodium 139 (136-145) mmol/L Potassium 5.0 (3.5-5.1) mmol/L Chloride 103 (98-107) mmol/L Carbon Dioxide 26.5 (21.0-32.0) mmol/L BUN 42 H (7-18) mg/dL Creatinine 1.73 H (0.51-1.17) mg/dL Est Cr Clr Drug Dosing 17.78 mL/min Estimated GFR (MDRD) 28 mL/min Glucose 103 (74-106) mg/dL Hemoglobin A1c (4.3-5.7) % Lactic Acid 0.7 (0.4-2.0) mmol/L Uric Acid 6.8 (2.6-7.2) mg/dL Calcium 9.4 (8.5-10.1) mg/dL Magnesium 2.1 (1.8-2.4) mg/dL Iron (50-175) ug/dL TIBC (250-450) ug/dL % Saturation Transferrin (203-362) mg/dL Ferritin (8-388) ng/mL Total Bilirubin 0.4 (0.2-1.0) mg/dL AST 12 L (15-37) U/L ALT 6 L (12-78) U/L Alkaline Phosphatase 69 (46-116) IU/L Creatine Kinase 137 131 (26-308) U/L Creatine Kinase Index 2.3 2.5 (0.0-2.5) % CK-MB (CK-2) 3.20 3.30 (0.00-3.60) ng/mL Troponin I 0.009 0.010 (0.000-0.056) ng/mL NT-Pro-B Natriuret Pep 602 H (0-125) pg/mL Total Protein 6.5 (6.4-8.2) g/dL Albumin 3.3 L (3.4-5.0) g/dL Triglycerides (30-150) mg/dL Cholesterol (100-200) mg/dL LDL Cholesterol, Calc (0-100) mg/dL HDL Cholesterol (40-60) mg/dL TSH, Ultra Sensitive 13.265 H (0.358-3.740) mIU/mL 06/22/17 06/23/17 06/23/17 Range/Units 21:37 06:50 06:50 WBC 4.2 (4.0-10.2) K/uL RBC 3.65 L (3.77-5.09) M/uL Hgb 10.6 L (11.7-15.5) g/dL Hct 33.8 L (34.0-46.0) % MCV 92.6 (84.0-98.0) fL MCH 29.0 (28.2-33.3) pg MCHC 31.4 L (31.7-36.0) g/dL RDW 17.0 H (11.2-14.1) % Plt Count 214 (150-350) K/uL Neut % (Auto) 67.2 (45.0-80.0) % Lymph % (Auto) 17.6 (10.0-50.0) % [place] % (Auto) 12.0 (2.0-14.0) % Eos % (Auto) 2.7 (0.0-5.0) % Baso % (Auto) 0.5 (0.0-2.0) % Neut # (Auto) 2.79 (1.40-7.00) K/uL Lymph # (Auto) 0.73 (0.50-3.50) K/uL [place] # (Auto) 0.50 (0.00-1.00) K/uL Eos # (Auto) 0.11 (0.00-0.50) K/uL Baso # (Auto) 0.02 (0.00-0.20) K/uL PT (9.8-11.7) SEC INR APTT (22.1-29.8) SEC D-Dimer, Quantitative 514 H (0-400) ng/mL Sodium (136-145) mmol/L Potassium (3.5-5.1) mmol/L Chloride (98-107) mmol/L Carbon Dioxide (21.0-32.0) mmol/L BUN (7-18) mg/dL Creatinine (0.51-1.17) mg/dL Est Cr Clr Drug Dosing mL/min Estimated GFR (MDRD) mL/min Glucose (74-106) mg/dL Hemoglobin A1c (4.3-5.7) % Lactic Acid (0.4-2.0) mmol/L Uric Acid (2.6-7.2) mg/dL Calcium (8.5-10.1) mg/dL Magnesium (1.8-2.4) mg/dL Iron (50-175) ug/dL TIBC (250-450) ug/dL % Saturation Transferrin (203-362) mg/dL Ferritin (8-388) ng/mL Total Bilirubin (0.2-1.0) mg/dL AST (15-37) U/L ALT (12-78) U/L Alkaline Phosphatase (46-116) IU/L Creatine Kinase 148 (26-308) U/L Creatine Kinase Index 2.3 (0.0-2.5) % CK-MB (CK-2) 3.40 (0.00-3.60) ng/mL Troponin I 0.005 (0.000-0.056) ng/mL NT-Pro-B Natriuret Pep (0-125) pg/mL Total Protein (6.4-8.2) g/dL Albumin (3.4-5.0) g/dL Triglycerides (30-150) mg/dL Cholesterol (100-200) mg/dL LDL Cholesterol, Calc (0-100) mg/dL HDL Cholesterol (40-60) mg/dL TSH, Ultra Sensitive (0.358-3.740) mIU/mL 06/23/17 06/23/17 06/23/17 Range/Units 06:50 06:50 06:50 WBC (4.0-10.2) K/uL RBC (3.77-5.09) M/uL Hgb (11.7-15.5) g/dL Hct (34.0-46.0) % MCV (84.0-98.0) fL MCH (28.2-33.3) pg MCHC (31.7-36.0) g/dL RDW (11.2-14.1) % Plt Count (150-350) K/uL Neut % (Auto) (45.0-80.0) % Lymph % (Auto) (10.0-50.0) % [place] % (Auto) (2.0-14.0) % Eos % (Auto) (0.0-5.0) % Baso % (Auto) (0.0-2.0) % Neut # (Auto) (1.40-7.00) K/uL Lymph # (Auto) (0.50-3.50) K/uL [place] # (Auto) (0.00-1.00) K/uL Eos # (Auto) (0.00-0.50) K/uL Baso # (Auto) (0.00-0.20) K/uL PT (9.8-11.7) SEC INR APTT (22.1-29.8) SEC D-Dimer, Quantitative (0-400) ng/mL Sodium 134 L (136-145) mmol/L Potassium 4.6 (3.5-5.1) mmol/L Chloride 100 (98-107) mmol/L Carbon Dioxide 24.6 (21.0-32.0) mmol/L BUN 42 H (7-18) mg/dL Creatinine 1.86 H (0.51-1.17) mg/dL Est Cr Clr Drug Dosing 16.54 mL/min Estimated GFR (MDRD) 26 mL/min Glucose 96 (74-106) mg/dL Hemoglobin A1c 5.7 (4.3-5.7) % Lactic Acid (0.4-2.0) mmol/L Uric Acid (2.6-7.2) mg/dL Calcium 9.4 (8.5-10.1) mg/dL Magnesium (1.8-2.4) mg/dL Iron 68 (50-175) ug/dL TIBC 202 L (250-450) ug/dL % Saturation [id number] Transferrin (203-362) mg/dL Ferritin 129 (8-388) ng/mL Total Bilirubin 0.4 (0.2-1.0) mg/dL AST 15 (15-37) U/L ALT 6 L (12-78) U/L Alkaline Phosphatase 66 (46-116) IU/L Creatine Kinase 134 (26-308) U/L Creatine Kinase Index 2.2 (0.0-2.5) % CK-MB (CK-2) 3.00 (0.00-3.60) ng/mL Troponin I 0.011 (0.000-0.056) ng/mL NT-Pro-B Natriuret Pep 727 H (0-125) pg/mL Total Protein 6.0 L (6.4-8.2) g/dL Albumin 3.1 L (3.4-5.0) g/dL Triglycerides 104 (30-150) mg/dL Cholesterol 154 (100-200) mg/dL LDL Cholesterol, Calc 78 (0-100) mg/dL HDL Cholesterol 55 (40-60) mg/dL TSH, Ultra Sensitive (0.358-3.740) mIU/mL 06/23/17 06/24/17 06/24/17 Range/Units 06:50 06:50 06:50 WBC 4.2 (4.0-10.2) K/uL RBC 3.84 (3.77-5.09) M/uL Hgb 11.3 L (11.7-15.5) g/dL Hct 34.8 (34.0-46.0) % MCV 90.6 (84.0-98.0) fL MCH 29.4 (28.2-33.3) pg MCHC 32.5 (31.7-36.0) g/dL RDW 16.5 H (11.2-14.1) % Plt Count 221 (150-350) K/uL Neut % (Auto) 65.5 (45.0-80.0) % Lymph % (Auto) 18.3 (10.0-50.0) % [place] % (Auto) 12.6 (2.0-14.0) % Eos % (Auto) 3.1 (0.0-5.0) % Baso % (Auto) 0.5 (0.0-2.0) % Neut # (Auto) 2.75 (1.40-7.00) K/uL Lymph # (Auto) 0.77 (0.50-3.50) K/uL [place] # (Auto) 0.53 (0.00-1.00) K/uL Eos # (Auto) 0.13 (0.00-0.50) K/uL Baso # (Auto) 0.02 (0.00-0.20) K/uL PT (9.8-11.7) SEC INR APTT (22.1-29.8) SEC D-Dimer, Quantitative 468 H (0-400) ng/mL Sodium (136-145) mmol/L Potassium (3.5-5.1) mmol/L Chloride (98-107) mmol/L Carbon Dioxide (21.0-32.0) mmol/L BUN (7-18) mg/dL Creatinine (0.51-1.17) mg/dL Est Cr Clr Drug Dosing mL/min Estimated GFR (MDRD) mL/min Glucose (74-106) mg/dL Hemoglobin A1c (4.3-5.7) % Lactic Acid (0.4-2.0) mmol/L Uric Acid (2.6-7.2) mg/dL Calcium (8.5-10.1) mg/dL Magnesium (1.8-2.4) mg/dL Iron (50-175) ug/dL TIBC (250-450) ug/dL % Saturation Transferrin 180 L (203-362) mg/dL Ferritin (8-388) ng/mL Total Bilirubin (0.2-1.0) mg/dL AST (15-37) U/L ALT (12-78) U/L Alkaline Phosphatase (46-116) IU/L Creatine Kinase (26-308) U/L Creatine Kinase Index (0.0-2.5) % CK-MB (CK-2) (0.00-3.60) ng/mL Troponin I (0.000-0.056) ng/mL NT-Pro-B Natriuret Pep (0-125) pg/mL Total Protein (6.4-8.2) g/dL Albumin (3.4-5.0) g/dL Triglycerides (30-150) mg/dL Cholesterol (100-200) mg/dL LDL Cholesterol, Calc (0-100) mg/dL HDL Cholesterol (40-60) mg/dL TSH, Ultra Sensitive (0.358-3.740) mIU/mL 06/24/17 Range/Units 06:50 WBC (4.0-10.2) K/uL RBC (3.77-5.09) M/uL Hgb (11.7-15.5) g/dL Hct (34.0-46.0) % MCV (84.0-98.0) fL MCH (28.2-33.3) pg MCHC (31.7-36.0) g/dL RDW (11.2-14.1) % Plt Count (150-350) K/uL Neut % (Auto) (45.0-80.0) % Lymph % (Auto) (10.0-50.0) % [place] % (Auto) (2.0-14.0) % Eos % (Auto) (0.0-5.0) % Baso % (Auto) (0.0-2.0) % Neut # (Auto) (1.40-7.00) K/uL Lymph # (Auto) (0.50-3.50) K/uL [place] # (Auto) (0.00-1.00) K/uL Eos # (Auto) (0.00-0.50) K/uL Baso # (Auto) (0.00-0.20) K/uL PT (9.8-11.7) SEC INR APTT (22.1-29.8) SEC D-Dimer, Quantitative (0-400) ng/mL Sodium 129 L (136-145) mmol/L Potassium 4.6 (3.5-5.1) mmol/L Chloride 94 L (98-107) mmol/L Carbon Dioxide 26.6 (21.0-32.0) mmol/L BUN 47 H (7-18) mg/dL Creatinine 2.13 H (0.51-1.17) mg/dL Est Cr Clr Drug Dosing 14.31 mL/min Estimated GFR (MDRD) 22 mL/min Glucose 93 (74-106) mg/dL Hemoglobin A1c (4.3-5.7) % Lactic Acid (0.4-2.0) mmol/L Uric Acid (2.6-7.2) mg/dL Calcium 9.5 (8.5-10.1) mg/dL Magnesium (1.8-2.4) mg/dL Iron (50-175) ug/dL TIBC (250-450) ug/dL % Saturation Transferrin (203-362) mg/dL Ferritin (8-388) ng/mL Total Bilirubin (0.2-1.0) mg/dL AST (15-37) U/L ALT (12-78) U/L Alkaline Phosphatase (46-116) IU/L Creatine Kinase (26-308) U/L Creatine Kinase Index (0.0-2.5) % CK-MB (CK-2) (0.00-3.60) ng/mL Troponin I 0.012 (0.000-0.056) ng/mL NT-Pro-B Natriuret Pep 573 H (0-125) pg/mL Total Protein (6.4-8.2) g/dL Albumin (3.4-5.0) g/dL Triglycerides (30-150) mg/dL Cholesterol (100-200) mg/dL LDL Cholesterol, Calc (0-100) mg/dL HDL Cholesterol (40-60) mg/dL TSH, Ultra Sensitive (0.358-3.740) mIU/mL ANNA Results - Last 24 hrs: None Med Orders - Current: Current Medications Acetaminophen (Tylenol) 650 mg PO Q4H PRN PRN Reason: Pain Last Admin: 06/23/17 07:45 Dose: 650 mg Aspirin (Halfprin) 81 mg PO DAILY [facility] Last Admin: 06/24/17 08:00 Dose: 81 mg Calcitriol (Rocaltrol) 0.25 mcg PO DAILY [facility] Last Admin: 06/24/17 08:00 Dose: 0.25 mcg Carbidopa/Levodopa (Sinemet 25-100 Mg) 1 tab PO QID [facility] Last Admin: 06/24/17 08:00 Dose: 1 tab Cholecalciferol (Vitamin D3) 1,000 units PO DAILY [facility] Last Admin: 06/24/17 08:03 Dose: 1,000 units Citalopram Hydrobromide (Celexa) 10 mg PO DAILY [facility] Last Admin: 06/24/17 08:01 Dose: 10 mg Cyanocobalamin (Vitamin B12) 1,000 mcg PO DAILY [facility] Last Admin: 06/24/17 08:01 Dose: 1,000 mcg Docusate Sodium (Colace) 100 mg PO DAILY PRN PRN Reason: Constipation Enoxaparin Sodium (Lovenox) 30 mg SUBCUT Q24H [facility] Last Admin: 06/23/17 12:00 Dose: 30 mg Famotidine (Pepcid) 20 mg IVPUSH DAILY [facility] Last Admin: 06/24/17 08:04 Dose: 20 mg Furosemide (Lasix) 40 mg IVPUSH BID [facility] Last Admin: 06/24/17 08:04 Dose: 40 mg Hydralazine HCl (Apresoline) 50 mg PO Q8H [facility] Last Admin: 06/24/17 05:09 Dose: 50 mg Hydrochlorothiazide (Hydrochlorothiazide) 12.5 mg PO DAILY [facility] Last Admin: 06/24/17 07:59 Dose: 12.5 mg Labetalol HCl (Normodyne) 50 mg PO BID [facility] Last Admin: 06/24/17 07:58 Dose: 50 mg Levothyroxine Sodium (Levothyroxine) 150 mcg PO ACBREAKFAST [facility] Last Admin: 06/24/17 08:03 Dose: 150 mcg Lorazepam (Ativan) 0.5 mg PO Q6H PRN PRN Reason: Anxiety Last Admin: 06/23/17 20:10 Dose: 0.5 mg Losartan Potassium (Cozaar) 100 mg PO DAILY [facility] Last Admin: 06/24/17 08:02 Dose: 100 mg Lovastatin (Mevacor) 40 mg PO BEDTIME [facility] Last Admin: 06/23/17 20:09 Dose: 40 mg Ondansetron HCl (Zofran) 4 mg IVPUSH Q6H PRN PRN Reason: Nausea/Vomiting Last Admin: 06/23/17 09:19 Dose: 4 mg Potassium Chloride (Klor-Con M20) 20 meq PO BID [facility] Last Admin: 06/24/17 08:02 Dose: 20 meq Sodium Chloride (Saline Flush) 10 ml FLUSH ASDIRECTED PRN PRN Reason: Keep Vein Open Last Admin: 06/23/17 17:06 Dose: 10 ml Sodium Chloride (Saline Flush) 10 ml FLUSH Q12HR PRN PRN Reason: Keep Vein Open Last Admin: 06/22/17 20:16 Dose: 10 ml Triamcinolone Acetonide (Triamcinolone Acetonide 0.025%) 0 gm TOP BID@0800, 2000 [facility] Last Admin: 06/24/17 08:25 Dose: 1 units Discontinued Medications Carbidopa/Levodopa (Sinemet 25-100 Mg) 1 tab PO ONETIME ONE Stop: 06/22/17 13:34 Last Admin: 06/22/17 13:44 Dose: 1 tab Diazepam (Valium) 2.5 mg IVPUSH ONETIME ONE Stop: 06/22/17 11:09 Last Admin: 06/22/17 11:15 Dose: 2.5 mg Enoxaparin Sodium (Lovenox) 60 mg SUBCUT Q24H [facility] Last Admin: 06/22/17 13:02 Dose: 60 mg Famotidine (Pepcid) 40 mg IVPUSH ONETIME ONE Stop: 06/22/17 10:37 Last Admin: 06/22/17 10:56 Dose: 40 mg Fentanyl (Sublimaze) 50 mcg IVPUSH ONETIME ONE Stop: 06/22/17 10:57 Last Admin: 06/22/17 10:59 Dose: 50 mcg Fentanyl (Sublimaze) 50 mcg IVPUSH ONETIME ONE Stop: 06/22/17 11:56 Last Admin: 06/22/17 12:01 Dose: 50 mcg Fentanyl (Sublimaze) 50 mcg IVPUSH Q6H PRN PRN Reason: Headache/Pain Last Admin: 06/22/17 21:12 Dose: 50 mcg Furosemide (Lasix) 40 mg IVPUSH Q8H [facility] Last Admin: 06/23/17 05:01 Dose: 40 mg Hydralazine HCl (Apresoline) 10 mg IVPUSH ONETIME ONE Stop: 06/22/17 11:42 Last Admin: 06/22/17 11:46 Dose: 10 mg Ondansetron HCl (Zofran) 4 mg IVPUSH ONETIME ONE Stop: 06/22/17 10:56 Last Admin: 06/22/17 10:59 Dose: 4 mg Potassium Chloride (Klor-Con M20) 20 meq PO TID [facility] Last Admin: 06/23/17 07:44 Dose: 20 meq Temazepam (Restoril) 15 mg PO BEDTIME PRN PRN Reason: Insomnia - Exam Quality Assessment: Reports: DVT Prophylaxis (Lovenox), Skin Breakdown ( Improving left leg rash), Restraints. Denies: Supplemental Oxygen, Central Line /PICC, Urine Catheter General: Reports: Alert, Oriented, Cooperative, No Acute Distress, Other ( Borderline organic brain syndrome) HEENT: Reports: Pupils Equal, Pupils Reactive, EOMI, Mucous Membr. Moist/[place] Neck: Reports: Supple, Trachea Midline, No JVD, No Thyromegaly, Carotid Bruit ( Mild to moderate bilateral carotid bruits versus transmitted heart sounds). Denies: Lymphadenopathy Lungs: Reports: Clear to Auscultation, Normal Respiratory Effort. Denies: Rales , Rub Cardiovascular: Reports: Regular Rhythm, Bradycardia (Borderline), Murmurs (2/6 FLETCHER at the aortic and mitral valves). Denies: Gallops, Rubs GI/Abdominal Exam: Normal Bowel Sounds, Soft, Non-Tender, No Organomegaly, No Distention, No Abnormal Bruit, No Mass, Pelvis Stable. No: Guarding (Female) Exam: Deferred Rectal (Female) Exam: Deferred Back Exam: Reports: Normal Inspection, Full Range of Motion. Denies: CVA Tenderness (L), CVA Tenderness (R), Muscle Spasm Extremities: Normal Range of Motion, Non-Tender, No Pedal Edema, Normal Capillary Refill, Other (Improved distal left fibular inflammation and excoriation with no local signs of infection). No: Candy's Sign Skin: Reports: Rash (As above) Wound/Incisions: Reports: Healing Well Neurological: Reports: No New Focal Deficit, Other (No Clinical orthostasis; borderline organic brain syndrome) Psy/Mental Status: Reports: Alert, Anxious (Mild), Depressed (Borderline with excellent eye contact). Denies: Agitated, Suicidal Ideation, Homicidal Ideation , Hallucinations, Withdrawal Symptoms *Q Meaningful Use (DIS) - VTE *Q VTE Criteria *Q: - Stroke *Q Stroke Criteria *Q: - AMI *Q AMI Criteria *Q:
== END 2017-06-24 10:30 | disposition home health service (06) | DRG 305 ==
LOC: LL.ED 10:25 → LL.MS 11:59
PROVIDERS: ADMIT Family Medicine; ATTEND Family Medicine
DX: I16.9 Hypertensive crisis, unspecified (principal); I25.10 Atherosclerotic heart disease of native coronary artery without angina pectoris; I13.0 Hypertensive heart and chronic kidney disease with heart failure and stage 1 through stage 4 chronic kidney disease, or unspecified chronic kidney disease; N18.9 Chronic kidney disease, unspecified; I50.9 Heart failure, unspecified; R79.1 Abnormal coagulation profile; E88.09 Other disorders of plasma-protein metabolism, not elsewhere classified; E03.9 Hypothyroidism, unspecified; D50.9 Iron deficiency anemia, unspecified; F41.8 Other specified anxiety disorders; M19.90 Unspecified osteoarthritis, unspecified site; K21.9 Gastro-esophageal reflux disease without esophagitis; Z88.0 Allergy status to penicillin; Z79.82 Long term (current) use of aspirin; Z79.899 Other long term (current) drug therapy; Z51.5 Encounter for palliative care
CPT/HCPCS: 36415; 70450; 71045; 80053; 82550; 82553; 83605; 83735; 83880; 84443; 84484; 84550; 85025; 85379; 85610; 85730; 93005; 96374; 96375; 99285; J0360; J2405; J3010; J3360; J7050 ×2; 74022; 80048; 80061; 82728; 83036; 83540; 83550; 84466; 93970; 96376; A9270-GY; J1650; J1940; S0028

== ENCOUNTER 2019-01-26 11:14 | Emergency (ER) | payer MEDICARE, OTHER ==
[2019-01-26] MEDS ORDERED: cloNIDine 0.1 MG Tab PO ONE (11:46)
--- NOTE | 2019-01-26 11:54 | EDM.PDOC ---
ED HPI GENERAL MEDICAL PROBLEM - General Chief Complaint: General Stated Complaint: high blood pressure Time Seen by Provider: 01/26/19 11:35 Source of Information: Reports: Patient History Limitations: Reports: No Limitations - History of Present Illness INITIAL COMMENTS - FREE TEXT/NARRATIVE: She presents to the ED complaining of a headache. She reports mild headache located on the top of her head. Present for 2-3 hours. She was noted to have an elevated blood pressure at her assisted living facility and was referred to the emergency department. No chest pain or tightness. No shortness of breath. No dizziness or lightheadedness. No weakness. No difficulty talking. No fever or chills. - Related Data Allergies Allergy/AdvReac Type Severity Reaction Status Date / Time Influenza Virus Vaccines Allergy Cannot Verified 01/26/19 11:23 Remember Penicillins Allergy Cannot Verified 01/26/19 11:23 Remember Home Meds: Home Meds Aspirin [Ecotrin EC] 81 mg PO DAILY 04/06/17 [History] Calcitriol 0.25 mcg PO DAILY 04/06/17 [History] Carbidopa/Levodopa [Carbidopa-Levo 25-100 MG ODT] 1 tab PO QID 04/06/17 [History ] Cholecalciferol (Vitamin D3) [Vitamin D3] 1,000 unit PO DAILY 04/06/17 [History] Cyanocobalamin (Vitamin B12) [Vitamin B12] 1,000 mcg PO DAILY 04/06/17 [History] Docusate Sodium [Colace] 1 tab PO DAILY PRN 04/06/17 [History] Lovastatin 40 mg PO BEDTIME 04/06/17 [History] Bisacodyl [Dulcolax] 10 mg RC DAILY PRN 06/23/17 [History] Acetaminophen [Tylenol] 650 mg PO Q4H PRN tablet 06/24/17 [Rx] Furosemide 10 mg PO DAILY #10 tablet 06/24/17 [Rx] Lidocaine 1 patch TP DAILY PRN 03/30/18 [History] Triamcinolone Acetonide [Triamcinolone Acetonide 0.025%] 1 gm TOP BID@0800,2000 PRN 03/30/18 [History] Citalopram [Citalopram HBr] 20 mg PO DAILY #30 tablet 04/01/18 [Rx] Levothyroxine 25 mcg PO ACBREAKFAST #30 tablet 04/01/18 [Rx] Levothyroxine 112 mcg PO ACBREAKFAST #30 tablet 04/01/18 [Rx] Labetalol [Normodyne] 100 mg PO DAILY 01/26/19 [History] hydrALAZINE HCl [Hydralazine HCl] 100 mg PO TID 01/26/19 [History] Past Medical History HEENT History: Reports: Hard of Hearing, Impaired Vision, Other (See Below) Other HEENT History: Patient wears glasses; severe bilateral presbycusis with suboptimal improvement with bilateral hearing aids; chronic tinnitus and vertigo with negative workup Cardiovascular History: Reports: Arrhythmia, CAD, Heart Failure, Heart Murmur, High Cholesterol, Hypertension, Pulmonary Hypertension, PVD, Other (See Below) Other Cardiovascular History: Bradycardia, incomplete right bundle branch block , history of left renal artery stenosis requiring procedure as below; mild anteroseptal and inferolateral posterior cardiac ischemia by distant adenosine Cardiolite stress test with subsequent negative follow-up as below; 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 D-dimer elevation on 06/22/17 with negative workup. 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 Psychiatric History: Reports: Alzheimers Disease, Anxiety, Dementia, Depression , Suicidal Ideation, Other (See Below) Other Psychiatric History: Situational suicidal ideation and attempt 10/08/1971 secondary to her adopted son's alcohol or drug abuse as below Endocrine/Metabolic History: Reports: Hyperparathyroidism, Hypoparathyroidism, Osteopenia, Osteoporosis, Other (See Below) Other Endocrine/Metabolic History: Secondary hyperparathyroidism secondary to her renal disease Hematologic History: Reports: Anemia, Iron Deficiency, Other (See Below) Other Hematologic History: Outpatient Iron replacement in 2017 Immunologic History: Reports: None Oncologic (Cancer) History: Reports: None Dermatologic History: Reports: Venous Stasis Dermatitis, Other (See Below) Other Dermatologic History: Chronic allergic dermatitis - Infectious Disease History Infectious Disease History: Reports: Other (See Below) Other Infectious Disease History: Childhood diseases however patient uncertain - Past Surgical History Head Surgeries/Procedures: Reports: None HEENT Surgical History: Reports: Oral Surgery, Tonsillectomy, Other (See Below) Other HEENT Surgeries/Procedures: Multiple teeth extractions; tonsillectomy at age 15 Cardiovascular Surgical History: Reports: Vascular Surgery, Other (See Below) Other Cardiovascular Surgeries/Procedures: Left renal artery stent/SHREDDER PICKER on Respiratory Surgical History: Reports: None GI Surgical History: Reports: Cholecystectomy, Colonoscopy, Other (See Below) Other GI Surgeries/Procedures: Colonoscopy on 01/09/08 with previous evaluation on 11/14/02; laparoscopic cholecystectomy on 05/13/2000 Female Surgical History: Reports: None Endocrine Surgical History: Reports: None Neurological Surgical History: Reports: Laminectomy, Lumbar Spine, Spinal Fusion , Other (See Below) Other Neurological Surgeries/Procedures: Laminectomy and/or spinal fusions in lumbar region in 1965 and 1966 Musculoskeletal Surgical History: Reports: None Oncologic Surgical History: Reports: None Dermatological Surgical History: Reports: None - Past Imaging History Past Imaging History: Reports: Cardiac Echo (Last echocardiogram on 10/19/05 with previous evaluation on 08/26/01), Carotid US (02/28/08 with previous evaluation on 10/01/03), CAT Scan (Negative CT of the head on on 06/22/17 with results at this above with previous CT scan on 12/28/1989.), DEXA Scan (01/27/11) , Mammogram (Last on 03/18/09), MRA (Abdominal MRA on 12/25/04), MRI (Right shoulder on 05/16/13;), Stress Testing (Negative Cardiolite stress test on 04/01 with ejection fraction 74% at that time with previous history of mild cardiac ischemia as above by adenosine Cardiolite stress test on 08/21/02: Cardiolite stress test in April 2000), Ultrasound (Abdominal aortic ultrasound on 02/28/08; renal artery duplex evaluation on 11/19/04), Venous Doppler (Negative venous Doppler studies of the lower extremities on 06/22/17.) Social & Family History - Family History Family Medical History: Unobtainable Cardiac: Reports: Hypertension, Pacemaker, Other (See Below) Other Cardiac Family History: Mother with pacemaker in her 80s; hypertension in 7 sisters Respiratory: Reports: COPD, Other (See Below) Other Respiratory Family Hisory: Half-brother with COPD with history of tobacco use Musculoskeletal: Reports: Arthritis, Osteoarthritis, Other (See Below) Other Musculoskeletal Family History: Sister with osteoarthritis Neurological: Reports: Alzheimers Disease, CVA, Dementia, Other (See Below) Other Neurological Family History: Sister with fatal CVA in her 70s; brother with fatal Ema Gehrig's disease/ALS at age 70; 2 sisters with organic brain syndrome Psychiatric: Reports: Anxiety, Depression, Psych Hospitalization(s), Other (See Below) Other Psychiatric Family History: Adoptive son with alcohol abuse and drug abuse initially in his 40s Endocrine/Metabolic: Reports: Diabetes, type II, Hypothyroidism, Other (See Below) Other Endocrine/Metabolic Family History: AODM in maternal aunt; sister with hypothyroidism Hematologic: Reports: Anemia, B12 Deficiency, Other (See Below) Other Hematologic Family History: Sister and brother with vitamin B-12 deficiency anemia Oncologic: Reports: Brain, Leukemia, Other (See Below) Other Oncologic Family History: Maternal grandparents with unknown type of cancer multiple nieces and nephews with early cancers fatal in their 30s to 40s , including nephew dying from brain cancer at age 34; nephew with fatal leukemia at age 34 - Caffeine Use Caffeine Use: Reports: Coffee (34 cups per day). 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 Denies: Confusion, Dizziness, Numbness, Paresthesia, Syncope, Trouble Speaking, Difficulty Walking, Weakness, Change in Speech Psychiatric: Reports: Anxiety Hematologic/Lymphatic: Reports: No Symptoms Immunologic: Reports: No Symptoms ED EXAM, GENERAL - Physical Exam Exam: See Below Exam Limited By: No Limitations General Appearance: Alert, WD/WN, No Apparent Distress Eye Exam: Bilateral Eye: Normal Inspection, PERRL Ears: Normal External Exam, Hearing Loss (Hearing aides in place) Nose: Normal Inspection Throat/Mouth: Normal Inspection, Normal Lips, Normal Oropharynx Head: Atraumatic, Normocephalic Neck: Normal Inspection, Non-Tender Respiratory/Chest: No Respiratory Distress, Lungs Clear Cardiovascular: Normal Peripheral Pulses, Regular Rate, Rhythm, No Murmur GI/Abdominal: Normal Bowel Sounds, Soft, Non-Tender (Female) Exam: Deferred Rectal (Female) Exam: Deferred Neurological: Alert, Oriented, CN II-XII Intact, Normal Cognition, Normal Reflexes, Other (Normal cerebellar tests) Psychiatric: Normal Affect, Normal Mood Skin Exam: Warm, Dry Course - Vital Signs Last Recorded V/S: Last Vital Signs Temp 36.4 C 01/26/19 11:19 Pulse 56 L 01/26/19 12:39 Resp 20 01/26/19 12:39 BP 176/73 H 01/26/19 12:39 Pulse Ox 94 L 01/26/19 12:39 - Orders/Labs/Meds Labs: Laboratory Tests 01/26/19 01/26/19 Range/Units 11:55 11:55 WBC 5.2 (4.0-10.2) K/uL RBC 3.40 L (3.77-5.09) M/uL Hgb 10.5 L (11.7-15.5) g/dL Hct 31.6 L (34.0-46.0) % MCV 92.9 D (84.0-98.0) fL MCH 30.9 (28.2-33.3) pg MCHC 33.2 (31.7-36.0) g/dL RDW 13.4 (11.2-14.1) % Plt Count 209 (150-350) K/uL Neut % (Auto) 72.8 (45.0-80.0) % Lymph % (Auto) 13.6 (10.0-50.0) % [place] % (Auto) 11.9 (2.0-14.0) % Eos % (Auto) 1.5 (0.0-5.0) % Baso % (Auto) 0.2 (0.0-2.0) % Neut # (Auto) 3.79 (1.40-7.00) K/uL Lymph # (Auto) 0.71 (0.50-3.50) K/uL [place] # (Auto) 0.62 (0.00-1.00) K/uL Eos # (Auto) 0.08 (0.00-0.50) K/uL Baso # (Auto) 0.01 (0.00-0.20) K/uL Sodium 133 L (136-145) mmol/L Potassium 3.8 (3.5-5.1) mmol/L Chloride 99 (98-107) mmol/L Carbon Dioxide 24.8 (21.0-32.0) mmol/L BUN 45 H (7-18) mg/dL Creatinine 1.81 H (0.51-1.17) mg/dL Est Cr Clr Drug Dosing 15.90 mL/min Estimated GFR (MDRD) 26 mL/min Glucose 100 (74-106) mg/dL Calcium 9.2 (8.5-10.1) mg/dL Total Bilirubin 0.5 (0.2-1.0) mg/dL AST 18 (15-37) U/L ALT 9 L (12-78) U/L Alkaline Phosphatase 68 (46-116) IU/L Total Protein 6.5 (6.4-8.2) g/dL Albumin 3.2 L (3.4-5.0) g/dL Meds: Medications Discontinued Medications Generic Name Dose Route Start Last Admin Trade Name Estella PRN Reason Stop Dose Admin Clonidine HCl 0.1 mg 01/26/19 11:46 01/26/19 11:52 Catapres PO 01/26/19 11:47 0.1 mg ONETIME ONE Administration Lorazepam 0.25 mg 01/26/19 12:29 01/26/19 12:35 Ativan PO 01/26/19 12:30 0.25 mg ONETIME ONE Administration - Re-Assessments/Exams Free Text/Narrative Re-Assessment/Exam: 01/26/19 12:43 She was given clonidine 0.1 mg by mouth and systolic blood pressure decreased to the low 200s. She seemed very anxious, was then given Ativan 0.25 mg. Following this she appeared much more calm and her blood pressure was down to 167/76. She reported minimal headache. She was otherwise doing very well. There was no indication of stroke or other neurologic deficit. Decision was made to discharge to home. Departure - Departure Time of Disposition: 12:50 Disposition: Home, Self-Care 01 Clinical Impression: Hypertension - Discharge Information Instructions: Hypertension, [id number], Lorazepam tablets, Clonidine tablets Referrals: Jose Nevarez PA [Primary Care Provider] - Forms: ED Department Discharge Care Plan Goals: Resume usual home medications. Followup with primary provider to discuss possible adjustments in blood pressure medications in 1-2 weeks, earlier for any recurrent problems. Return to the emergency department as needed - Problem List & Annotations (1) Hypertension SNOMED Code(s): 03783743 Code(s): I10 - ESSENTIAL (PRIMARY) HYPERTENSION Status: Acute Priority: High Annotation/Comment:: BPs quickly improved after admission. Given the quick improvement there is suspicion that patient is not taking her medications as prescribed at home and may be forgetting doses. No further adjustment will be made at time of discharge, patient is to follow up closely with primary provider and BP trends monitored. Home Health will be restarted. Family is trying to get the patient to agree to go to a higher level of care where her medications will be monitored and given to her. Qualifiers: Hypertension type: essential hypertension Qualified Code(s): I10 - Essential (primary) hypertension - Assessment/Plan Assessment:: hypertension Plan: Discussed findings and treatment options. Resume usual home medications. Followup with primary provider to discuss possible adjustments in blood pressure medications in 1-2 weeks, earlier for any recurrent problems. Return to the emergency department as needed
[2019-01-26] MEDS ORDERED: LORazepam 0.5 MG Tab PO ONE (12:29)
== END 2019-01-26 13:15 | disposition home or self-care (01) ==
LOC: LL.ED 11:14
DX: I13.0 Hypertensive heart and chronic kidney disease with heart failure and stage 1 through stage 4 chronic kidney disease, or unspecified chronic kidney disease (principal); N18.9 Chronic kidney disease, unspecified; I50.9 Heart failure, unspecified; E21.3 Hyperparathyroidism, unspecified; M81.0 Age-related osteoporosis without current pathological fracture; M19.90 Unspecified osteoarthritis, unspecified site; Z79.82 Long term (current) use of aspirin; Z79.899 Other long term (current) drug therapy
CPT/HCPCS: 36415; 80053; 85025; 99284; A9270

== ENCOUNTER 2019-01-30 14:48 | Emergency (ER) | payer MEDICARE, OTHER ==
--- NOTE | 2019-01-30 15:04 | EDM.PDOC ---
ED HPI GENERAL MEDICAL PROBLEM - General Chief Complaint: General Stated Complaint: high blood pressure, headache Time Seen by Provider: 01/30/19 14:50 Source of Information: Reports: Patient, EMS, Other (home health ) History Limitations: Reports: No Limitations - History of Present Illness INITIAL COMMENTS - FREE TEXT/NARRATIVE: Patient referred to ER for evaluation of hypertension after home health nurse noted systolic BP over 200 during routine visit. Patient reports bilateral frontal headache. No focal neuro changes however. Given NTG en route. BP dropped to 173/77 by the time she arrived in the ER, but then quickly climbed back up. Seen a week ago for similar complaint. BPs improved after receiving Ativan and Clonidine PO. Sent home. Patient lives in [facility]. She says that she did follow up with the [facility] but it does not appear that her meds for hypertension were changed at that time. Patient denies any other changes over the past recent weeks, such as dietary change, new supplements, illness. She does say that her lower legs are 'fatter'. Patient is not certain if she has gained any weight as she does not weigh herself. No SOB. No other complaints other than admitting to feeling anxious about the BP issues. - Related Data Allergies Allergy/AdvReac Type Severity Reaction Status Date / Time Influenza Virus Vaccines Allergy Cannot Verified 01/30/19 16:40 Remember Penicillins Allergy Cannot Verified 01/30/19 16:40 Remember Home Meds: Home Meds Aspirin [Ecotrin EC] 81 mg PO DAILY 04/06/17 [History] Calcitriol 0.25 mcg PO DAILY 04/06/17 [History] Carbidopa/Levodopa [Carbidopa-Levo 25-100 MG ODT] 1 tab PO QID 04/06/17 [History ] Cholecalciferol (Vitamin D3) [Vitamin D3] 1,000 unit PO DAILY 04/06/17 [History] Cyanocobalamin (Vitamin B12) [Vitamin B12] 1,000 mcg PO DAILY 04/06/17 [History] Docusate Sodium [Colace] 1 tab PO DAILY PRN 04/06/17 [History] Lovastatin 40 mg PO BEDTIME 04/06/17 [History] Bisacodyl [Dulcolax] 10 mg RC DAILY PRN 06/23/17 [History] Acetaminophen [Tylenol] 650 mg PO Q4H PRN tablet 06/24/17 [Rx] Furosemide 10 mg PO DAILY #10 tablet 06/24/17 [Rx] Lidocaine 1 patch TP DAILY PRN 03/30/18 [History] Triamcinolone Acetonide [Triamcinolone Acetonide 0.025%] 1 gm TOP BID@0800,1999 PRN 03/30/18 [History] Citalopram [Citalopram HBr] 20 mg PO DAILY #30 tablet 04/01/18 [Rx] Levothyroxine 25 mcg PO ACBREAKFAST #30 tablet 04/01/18 [Rx] Levothyroxine 112 mcg PO ACBREAKFAST #30 tablet 04/01/18 [Rx] Labetalol [Normodyne] 100 mg PO DAILY 01/26/19 [History] hydrALAZINE HCl [Hydralazine HCl] 100 mg PO TID@0800,1500,199901/26/19 [History ] Past Medical History HEENT History: Reports: Hard of Hearing, Impaired Vision, Other (See Below) Other HEENT History: Patient wears glasses; severe bilateral presbycusis with suboptimal improvement with bilateral hearing aids; chronic tinnitus and vertigo with negative workup Cardiovascular History: Reports: Arrhythmia, CAD, Heart Failure, Heart Murmur, High Cholesterol, Hypertension, Pulmonary Hypertension, PVD, Other (See Below) Other Cardiovascular History: Bradycardia, incomplete right bundle branch block , history of left renal artery stenosis requiring procedure as below; mild anteroseptal and inferolateral posterior cardiac ischemia by distant adenosine Cardiolite stress test with subsequent negative follow-up as below; 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 D-dimer elevation on 06/22/17 with negative workup. 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 Psychiatric History: Reports: Alzheimers Disease, Anxiety, Dementia, Depression , Suicidal Ideation, Other (See Below) Other Psychiatric History: Situational suicidal ideation and attempt 10/08/1971 secondary to her adopted son's alcohol or drug abuse as below Endocrine/Metabolic History: Reports: Hyperparathyroidism, Hypoparathyroidism, Osteopenia, Osteoporosis, Other (See Below) Other Endocrine/Metabolic History: Secondary hyperparathyroidism secondary to her renal disease Hematologic History: Reports: Anemia, Iron Deficiency, Other (See Below) Other Hematologic History: Outpatient Iron replacement in 2017 Immunologic History: Reports: None Oncologic (Cancer) History: Reports: None Dermatologic History: Reports: Venous Stasis Dermatitis, Other (See Below) Other Dermatologic History: Chronic allergic dermatitis - Infectious Disease History Infectious Disease History: Reports: Other (See Below) Other Infectious Disease History: Childhood diseases however patient uncertain - Past Surgical History Head Surgeries/Procedures: Reports: None HEENT Surgical History: Reports: Oral Surgery, Tonsillectomy, Other (See Below) Other HEENT Surgeries/Procedures: Multiple teeth extractions; tonsillectomy at age 15 Cardiovascular Surgical History: Reports: Vascular Surgery, Other (See Below) Other Cardiovascular Surgeries/Procedures: 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 Respiratory Surgical History: Reports: None GI Surgical History: Reports: Cholecystectomy, Colonoscopy, Other (See Below) Other GI Surgeries/Procedures: Colonoscopy on 01/09/08 with previous evaluation on 11/14/02; laparoscopic cholecystectomy on 05/13/2000 Female Surgical History: Reports: None Endocrine Surgical History: Reports: None Neurological Surgical History: Reports: Laminectomy, Lumbar Spine, Spinal Fusion , Other (See Below) Other Neurological Surgeries/Procedures: Laminectomy and/or spinal fusions in lumbar region in 1965 and 1966 Musculoskeletal Surgical History: Reports: None Oncologic Surgical History: Reports: None Dermatological Surgical History: Reports: None - Past Imaging History Past Imaging History: Reports: Cardiac Echo (Last echocardiogram on 10/19/05 with previous evaluation on 08/26/01), Carotid US (02/28/08 with previous evaluation on 10/01/03), CAT Scan (Negative CT of the head on on 06/22/17 with results at this above with previous CT scan on 12/28/1989.), DEXA Scan (01/27/11) , Mammogram (Last on 03/18/09), MRA (Abdominal MRA on 12/25/04), MRI (Right shoulder on 05/16/13;), Stress Testing (Negative Cardiolite stress test on 04/01 with ejection fraction 74% at that time with previous history of mild cardiac ischemia as above by adenosine Cardiolite stress test on 08/21/02: Cardiolite stress test in April 2000), Ultrasound (Abdominal aortic ultrasound on 02/28/08; renal artery duplex evaluation on 11/19/04), Venous Doppler (Negative venous Doppler studies of the lower extremities on 06/22/17.) Social & Family History - Family History Family Medical History: Unobtainable Cardiac: Reports: Hypertension, Pacemaker, Other (See Below) Other Cardiac Family History: Mother with pacemaker in her 80s; hypertension in 7 sisters Respiratory: Reports: COPD, Other (See Below) Other Respiratory Family Hisory: Half-brother with COPD with history of tobacco use Musculoskeletal: Reports: Arthritis, Osteoarthritis, Other (See Below) Other Musculoskeletal Family History: Sister with osteoarthritis Neurological: Reports: Alzheimers Disease, CVA, Dementia, Other (See Below) Other Neurological Family History: Sister with fatal CVA in her 70s; brother with fatal Ema Gehrig's disease/ALS at age 70; 2 sisters with organic brain syndrome Psychiatric: Reports: Anxiety, Depression, Psych Hospitalization(s), Other (See Below) Other Psychiatric Family History: Adoptive son with alcohol abuse and drug abuse initially in his 40s Endocrine/Metabolic: Reports: Diabetes, type II, Hypothyroidism, Other (See Below) Other Endocrine/Metabolic Family History: AODM in maternal aunt; sister with hypothyroidism Hematologic: Reports: Anemia, B12 Deficiency, Other (See Below) Other Hematologic Family History: Sister and brother with vitamin B-12 deficiency anemia Oncologic: Reports: Brain, Leukemia, Other (See Below) Other Oncologic Family History: Maternal grandparents with unknown type of cancer multiple nieces and nephews with early cancers fatal in their 30s to 40s , including nephew dying from brain cancer at age 34; nephew with fatal leukemia at age 34 - Caffeine Use Caffeine Use: Reports: Coffee (34 cups per day). 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 Denies: Chest Pain, Lightheadedness, Palpitations, Syncope GI/Abdominal: Reports: No Symptoms : Reports: No Symptoms Musculoskeletal: Reports: Other (no changes from baseline). Denies: Muscle Pain , Muscle Stiffness Skin: Reports: No Symptoms Neurological: Reports: Headache. Denies: Confusion, Dizziness, Numbness, Paresthesia, Seizure, Syncope, Tingling, Trouble Speaking, Difficulty Walking, Weakness, Change in Speech, Gait Disturbance Psychiatric: Reports: Anxiety ED EXAM, GENERAL - Physical Exam Exam: See Below Exam Limited By: No Limitations General Appearance: Alert, WD/WN, No Apparent Distress Eye Exam: Bilateral Eye: EOMI Nose: No: Nasal Deformity, Nasal Swelling, Nasal Drainage Throat/Mouth: Normal Lips, Normal Voice, No Airway Compromise Head: Atraumatic, Normocephalic Neck: Supple, Non-Tender, Full Range of Motion Respiratory/Chest: No Respiratory Distress, Normal Breath Sounds, No Accessory Muscle Use, Rales (faint crackles at bases). No: Rhonchi, Wheezing, Stridor, Accessory Muscle Use, Retractions Cardiovascular: Normal Peripheral Pulses, Regular Rate, Rhythm, No Murmur Peripheral Pulses: 2+: Radial (L), Radial (R) GI/Abdominal: Normal Bowel Sounds, Soft, Non-Tender, No Distention (Female) Exam: Deferred Rectal (Female) Exam: Deferred Back Exam: No: CVA Tenderness (L), CVA Tenderness (R), Muscle Spasm, Paraspinal Tenderness, Vertebral Tenderness Extremities: Non-Tender, Normal Capillary Refill, Pedal Edema. No: Candy's Sign , Leg Pain, Increased Warmth Neurological: Alert, Oriented, CN II-XII Intact, Normal Cognition, No Motor/ Sensory Deficits Psychiatric: Normal Affect, Normal Mood Skin Exam: Warm, Dry, Intact, Normal Color Course - Vital Signs Last Recorded V/S: Last Vital Signs Temp 36.8 C 01/30/19 16:25 Pulse 57 L 01/30/19 17:20 Resp 20 01/30/19 17:09 BP 212/89 H 01/30/19 17:20 Pulse Ox 95 01/30/19 17:09 - Orders/Labs/Meds Orders: Active Orders 24 hr Category Date Time Status Labetalol 100 MG in Normal Saline @ 0.5 MG/MIN(100ml) Med 01/30/19 16:45 Ordered Labetalol [Normodyne] 100 mg Sodium Chloride 0.9% [Normal Saline] 80 ml IV TITRATE Medication Orders Labetalol HCl 100 mg/ Sodium (Chloride) 100 mls @ 30 mls/hr IV TITRATE FAVIAN; Protocol Labs: Laboratory Tests 01/30/19 01/30/19 01/30/19 Range/Units 14:58 14:58 15:50 WBC 5.0 (4.0-10.2) K/uL RBC 3.28 L (3.77-5.09) M/uL Hgb 9.8 L (11.7-15.5) g/dL Hct 30.1 L (34.0-46.0) % MCV 91.8 (84.0-98.0) fL MCH 29.9 (28.2-33.3) pg MCHC 32.6 (31.7-36.0) g/dL RDW 13.3 (11.2-14.1) % Plt Count 205 (150-350) K/uL Neut % (Auto) 61.2 (45.0-80.0) % Lymph % (Auto) 20.3 (10.0-50.0) % [place] % (Auto) 16.1 H (2.0-14.0) % Eos % (Auto) 2.2 (0.0-5.0) % Baso % (Auto) 0.2 (0.0-2.0) % Neut # (Auto) 3.04 (1.40-7.00) K/uL Lymph # (Auto) 1.01 (0.50-3.50) K/uL [place] # (Auto) 0.80 (0.00-1.00) K/uL Eos # (Auto) 0.11 (0.00-0.50) K/uL Baso # (Auto) 0.01 (0.00-0.20) K/uL Sodium 133 L (136-145) mmol/L Potassium 4.1 (3.5-5.1) mmol/L Chloride 98 (98-107) mmol/L Carbon Dioxide 26.4 (21.0-32.0) mmol/L BUN 53 H (7-18) mg/dL Creatinine 1.94 H (0.51-1.17) mg/dL Est Cr Clr Drug Dosing 15.55 mL/min Estimated GFR (MDRD) 24 mL/min Glucose 100 (74-106) mg/dL Calcium 9.2 (8.5-10.1) mg/dL Magnesium 1.9 (1.8-2.4) mg/dL Total Bilirubin 0.4 (0.2-1.0) mg/dL AST 22 (15-37) U/L ALT 10 L (12-78) U/L Alkaline Phosphatase 60 (46-116) IU/L NT-Pro-B Natriuret Pep 2490 H (0-125) pg/mL Total Protein 6.4 (6.4-8.2) g/dL Albumin 3.2 L (3.4-5.0) g/dL Free T4 1.30 (0.76-1.46) ng/dL TSH, Ultra Sensitive 1.969 (0.358-3.740) mIU/mL Specimen Type Urinblad Urine Color Yellow Urine Appearance Clear Urine pH 6.0 (5.0-9.0) Ur Specific [place] 1.010 (1.005-1.030) Urine Protein >=300 H (NEGATIVE) mg/dL Urine Glucose (UA) Negative (NEGATIVE) mg/dL Urine Ketones Negative (NEGATIVE) mg/dL Urine Occult Blood Negative (NEGATIVE) Urine Nitrite Negative (NEGATIVE) Urine Bilirubin Negative (NEGATIVE) Urine Urobilinogen 0.2 (0.2-1.0) E.U./dL Ur Leukocyte Esterase Negative (NEGATIVE) Urine RBC 0-5 /HPF Urine WBC 0-5 /HPF Ur Epithelial Cells Rare /LPF Urine Bacteria Rare (NONE TO FEW) /HPF Urine Mucus Few H (NEGATIVE) /LPF Meds: Medications Generic Name Dose Route Start Last Admin Trade Name Freq PRN Reason Stop Dose Admin Labetalol HCl 100 mg/ Sodium 100 mls @ 30 mls/hr 01/30/19 16:45 Chloride IV TITRATE FAVIAN Protocol 0.5 MG/MIN Discontinued Medications Generic Name Dose Route Start Last Admin Trade Name Freq PRN Reason Stop Dose Admin Carbidopa/Levodopa 1 tab 01/30/19 15:33 01/30/19 15:38 Sinemet 25-100 Mg PO 01/30/19 15:34 1 tab ONETIME ONE Administration Clonidine HCl 0.1 mg 01/30/19 16:50 01/30/19 16:59 Catapres PO 01/30/19 16:51 0.1 mg ONETIME ONE Administration Furosemide 20 mg 01/30/19 15:17 01/30/19 15:38 Lasix IVPUSH 01/30/19 15:18 20 mg NOW ONE Administration Labetalol HCl 0 mg 01/30/19 15:13 01/30/19 15:19 Normodyne IVPUSH 01/30/19 15:14 10 mg ONETIME ONE Administration Protocol Labetalol HCl 20 mg 01/30/19 16:44 01/30/19 17:00 Normodyne IVPUSH 01/30/19 16:45 20 mg ONETIME ONE Administration Protocol Lorazepam 0.5 mg 01/30/19 16:13 01/30/19 16:19 Ativan IVPUSH 01/30/19 16:14 0.5 mg ONETIME ONE Administration - Re-Assessments/Exams Free Text/Narrative Re-Assessment/Exam: 01/30/19 17:16 Hgb 9.8 Normal WBC Chem showed elevation in BUN/Cr which is not new for patient. Mild decrease Na. ProBNP elevated. No change in BP observed at all despite two 10mg doses of Labetalol. Ativan IV given to see if anxiety component. Continued to have no change in BP. Clonidine PO and additional Labetalol given. 212/89 noted as most recent BP. Call placed to [facility] in [place] given refractory nature of hypertension and patient discussed with . It was decided to transfer the patient to their facility/cardiac step down unit for continued treatment of patient's hypertensive urgency. Departure - Departure Time of Disposition: 17:23 Disposition: DC/Tfer to Acute Hospital 02 Condition: Fair Clinical Impression: Hypertensive urgency - Discharge Information Referrals: Jose Nevarez PA [Primary Care Provider] - Forms: ED Department Discharge - My Orders Last 24 Hours: My Active Orders 01/30/19 16:45 Labetalol 100 MG in Normal Saline @ 0.5 MG/MIN(100ml) Labetalol [Normodyne] 100 mg Sodium Chloride 0.9% [Normal Saline] 80 ml IV TITRATE - Assessment/Plan Last 24 Hours: My Active Orders 01/30/19 16:45 Labetalol 100 MG in Normal Saline @ 0.5 MG/MIN(100ml) Labetalol [Normodyne] 100 mg Sodium Chloride 0.9% [Normal Saline] 80 ml IV TITRATE
[2019-01-30] MEDS ORDERED: Labetalol 20 MG/4 ML Syringe IVPUSH ONE ×2 (15:13→16:44)
[2019-01-30] MEDS ORDERED: Furosemide 40 MG/4 ML VIAL IVPUSH ONE (15:17)
[2019-01-30] MEDS ORDERED: Carbidopa/Levodopa 25-100 MG Tab PO ONE (15:33)
[2019-01-30] MEDS ORDERED: LORazepam 2 MG/ML SDV IVPUSH ONE (16:13)
[2019-01-30] MEDS ORDERED: Labetalol 100 MG in Sodium Chloride 0.9% 80 ML IV SCH (16:45)
[2019-01-30] MEDS ORDERED: cloNIDine 0.1 MG Tab PO ONE (16:50)
== END 2019-01-30 17:50 ==
LOC: LL.ED 14:48
DX: I16.0 Hypertensive urgency (principal); I11.0 Hypertensive heart disease with heart failure; I50.9 Heart failure, unspecified; E78.00 Pure hypercholesterolemia, unspecified; E20.9 Hypoparathyroidism, unspecified; F41.9 Anxiety disorder, unspecified; F32.9 Major depressive disorder, single episode, unspecified; Z88.0 Allergy status to penicillin; Z88.7 Allergy status to serum and vaccine; Z79.82 Long term (current) use of aspirin; Z79.899 Other long term (current) drug therapy
CPT/HCPCS: 36415; 80053; 81001; 83735; 83880; 84439; 84443; 85025; 96374; 99284; 99285-25; A9270-GY; J1940; J2060; J3490